=== PATIENT | male | born 1965 | race African-American/Black ===

== ENCOUNTER 2016-11-17 14:50 | Emergency (ER) | payer MEDICAID, OTHER ==
[~2016-11-17] VITALS: Ht 177.8 cm; Wt 84.0 kg
[~2016-11-17 14:50] MED LIST: NORCO
[2016-11-17] MEDS ORDERED: KETOROLAC 60MG/2ML VIAL IM ONE (19:00)
[2016-11-17 19:50] VITALS: BP 116/82
== END 2016-11-17 20:25 | disposition home or self-care (01) ==
LOC: ER 19:17
DX: K08.89 Other specified disorders of teeth and supporting structures (principal); M47.892 Other spondylosis, cervical region; F17.210 Nicotine dependence, cigarettes, uncomplicated; F12.10 Cannabis abuse, uncomplicated; Z88.0 Allergy status to penicillin
CPT/HCPCS: 96372; 99283; J1885

== ENCOUNTER 2017-12-18 08:18 | Emergency (ER) | payer MEDICAID ==
[~2017-12-18] VITALS: Ht 180.3 cm; Wt 97.7 kg
[2017-12-18 11:39] VITALS: BP 120/74
== END 2017-12-18 11:40 | disposition home or self-care (01) ==
LOC: ER 09:13
DX: G24.01 Drug induced subacute dyskinesia (principal); F12.10 Cannabis abuse, uncomplicated; Z88.0 Allergy status to penicillin
CPT/HCPCS: 99283

== ENCOUNTER 2018-07-18 16:19 | Emergency (ER) | payer MEDICAID ==
[~2018-07-18] VITALS: Ht 175.3 cm; Wt 83.0 kg
[2018-07-19] MEDS ORDERED: CYCLOBENZAPRINE 10MG TABLET PO ONE
[2018-07-19 00:14] VITALS: BP 155/97
== END 2018-07-19 00:16 | disposition home or self-care (01) ==
LOC: ER 16:19
DX: J20.9 Acute bronchitis, unspecified (principal); G51.32 Clonic hemifacial spasm, left; R13.10 Dysphagia, unspecified; R03.0 Elevated blood-pressure reading, without diagnosis of hypertension; G24.01 Drug induced subacute dyskinesia; T50.905D Adverse effect of unspecified drugs, medicaments and biological substances, subsequent encounter; F17.210 Nicotine dependence, cigarettes, uncomplicated; F12.90 Cannabis use, unspecified, uncomplicated; Z88.0 Allergy status to penicillin
CPT/HCPCS: 70360; 71045; 99283

== ENCOUNTER 2018-08-28 02:52 | Emergency (ER) | payer MEDICAID ==
[~2018-08-28] VITALS: Ht 180.3 cm; Wt 90.0 kg
[2018-08-28] MEDS ORDERED: IBUPROFEN 600MG TABLET PO ONE (06:30)
[2018-08-28 06:45] VITALS: BP 114/96
== END 2018-08-28 06:50 | disposition home or self-care (01) ==
LOC: ER 02:52
DX: R25.2 Cramp and spasm (principal); F17.210 Nicotine dependence, cigarettes, uncomplicated
CPT/HCPCS: 99283

== ENCOUNTER 2018-09-10 01:12 | Emergency (ER) | payer MEDICAID ==
[~2018-09-10] VITALS: Ht 177.8 cm; Wt 81.8 kg
[2018-09-10 03:30] VITALS: BP 135/75
== END 2018-09-10 03:40 | disposition home or self-care (01) ==
LOC: ER 01:12
DX: M62.838 Other muscle spasm (principal); Z88.0 Allergy status to penicillin
CPT/HCPCS: 99283

== ENCOUNTER 2018-09-12 15:03 | Emergency (ER) | payer MEDICAID ==
[~2018-09-12] VITALS: Ht 172.7 cm; Wt 80.0 kg
[2018-09-12] MEDS ORDERED: SODIUM CHLORIDE 0.9% 1,000 ML IV ONE (16:58)
[2018-09-12] MEDS ORDERED: MORPHINE SULFATE 4 MG/ML CPJ (NOT FOR IM USE) IV STA (16:58)
[2018-09-12] MEDS ORDERED: KETOROLAC 30MG/ML VIAL IV STA (16:58)
[2018-09-12] MEDS ORDERED: ONDANSETRON HCL 4MG/2ML INJ IV STA (16:58)
[2018-09-12 17:21] LABS: BASOPHILS % 0.5 % (0.0-2.0); EOSINOPHILS % 1.1 % (0.0-5.0); HEMOGLOBIN. 14.7 g/dL (14.0-18.0); LYMPHOCYTES % 36.5 % (20.0-50.0); MEAN CORPUSCULAR VOLUME 89.7 fL (80.0-94.0); MEAN PLATELET VOLUME 7.4 fl (7.4-10.4); MONOCYTES % 6.6 % (2.0-8.0); NEUTROPHILS % 55.3 % (40.0-76.0); PLATELET 182 x1000/uL (130-400); RED CELL DISTRIBUTION WIDTH 13.3 % (11.6-14.6)
[2018-09-12 17:23] LABS: CHLORIDE 108 mEq/L (98-107)
[2018-09-12 17:27] LABS: ETHANOL BLOOD 162 mg/dL
[2018-09-12 17:28] LABS: INR 1.1; PARTIAL THROMBOPLASTIN TIME 25.6 sec (23.4-31.0); PROTHROMBIN TIME 11.6 sec (9.6-11.0)
[2018-09-12 17:32] LABS: CREATINE KINASE 219 IU/L (39-308)
[2018-09-12 17:34] LABS: CREATINE KINASE MB FRACTION 2.1 ng/mL (0.5-3.6)
[2018-09-12 19:39] LABS: CLARITY URINE CLOUDY (CLEAR); COLOR URINE YELLOW (YELLOW); KETONES URINE NEGATIVE (NEGATIVE); LEUKOCYTE ESTERASE URINE NEGATIVE (NEGATIVE); NITRITE URINE NEGATIVE (NEGATIVE); OCCULT BLOOD URINE NEGATIVE (NEGATIVE); PROTEIN URINE NEGATIVE (NEGATIVE); SPECIFIC GRAVITY URINE 1.013 (1.005-1.030); UROBILINOGEN URINE 0.2 E.U./dL (0.2-1.0)
[2018-09-12 19:56] LABS: *AMPHETAMINES SCREEN URINE NEGATIVE (NEGATIVE); *BARBITURATES SCREEN URINE NEGATIVE (NEGATIVE); CANNABINOID URINE SCREEN PRESUMTIVE POSITIVE (NEGATIVE); PHENCYCLIDINE URINE SCREEN NEGATIVE (NEGATIVE)
[2018-09-12 19:57] LABS: *BENZODIAZEPINES SCREEN URINE NEGATIVE (NEGATIVE); *COCAINE SCREEN URINE NEGATIVE (NEGATIVE); METHADONE URINE SCREEN NEGATIVE (NEGATIVE); OPIATES URINE SCREEN PRESUMTIVE POSITIVE (NEGATIVE)
[2018-09-12] MEDS ORDERED: MAGNESIUM/ALUMINUM HYDROXIDE/SIMETHICONE 30ML UDC PO ONE (20:45)
[2018-09-12] MEDS ORDERED: LORAZEPAM 2MG/ML CPJ IV ONE (20:45)
[2018-09-12] MEDS ORDERED: FAMOTIDINE 20MG/2ML VIAL IV ONE (20:45)
[2018-09-13 04:16] VITALS: BP 146/95
== END 2018-09-13 04:48 | disposition home or self-care (01) ==
LOC: ER 15:03
DX: G92 Toxic encephalopathy (principal); K29.20 Alcoholic gastritis without bleeding; K21.9 Gastro-esophageal reflux disease without esophagitis; M62.838 Other muscle spasm; Y90.9 Presence of alcohol in blood, level not specified; Z88.0 Allergy status to penicillin
CPT/HCPCS: 36415; 71045; 80053; 80305; 80320; 81003; 82550; 82553; 83605; 83690; 83880; 84484; 85025; 85610; 85730; 87040; 87086; 93005; 96361; 96374; 96375; 99284; J1885; J2060; J2270; J2405; J3490; J7030; G0480

== ENCOUNTER 2018-09-13 04:57 | Emergency (ER) | payer MEDICAID ==
[~2018-09-13] VITALS: Ht 175.3 cm; Wt 87.0 kg
[2018-09-13 05:20] VITALS: BP 139/101
== END 2018-09-13 10:50 | disposition left against medical advice (07) ==
LOC: ER 04:57
DX: M62.838 Other muscle spasm (principal); Z53.21 Procedure and treatment not carried out due to patient leaving prior to being seen by health care provider

== ENCOUNTER 2018-10-13 13:17 | Emergency (ER) | payer MEDICAID ==
[~2018-10-13] VITALS: Ht 180.3 cm; Wt 86.0 kg
[2018-10-13 13:58] VITALS: BP 128/90
== END 2018-10-13 18:26 | disposition left against medical advice (07) ==
LOC: ER 13:17
DX: M62.838 Other muscle spasm (principal); Z53.21 Procedure and treatment not carried out due to patient leaving prior to being seen by health care provider

== ENCOUNTER 2018-10-23 02:17 | Emergency (ER) | payer MEDICAID ==
[~2018-10-23] VITALS: Ht 182.9 cm; Wt 77.0 kg
[2018-10-23] MEDS ORDERED: KETOROLAC 30MG/ML VIAL IM STA (03:28)
[2018-10-23 03:44] LABS: BASOPHILS % 0.8 % (0.0-2.0); EOSINOPHILS % 1.9 % (0.0-5.0); HEMATOCRIT. 40.5 % (42.0-52.0); HEMOGLOBIN. 13.8 g/dL (14.0-18.0); LYMPHOCYTES % 34.5 % (20.0-50.0); MEAN CORPUSCULAR VOLUME 90.7 fL (80.0-94.0); MEAN PLATELET VOLUME 7.4 fl (7.4-10.4); MONOCYTES % 7.4 % (2.0-8.0); NEUTROPHILS % 55.4 % (40.0-76.0); PLATELET 204 x1000/uL (130-400); RED BLOOD CELL COUNT 4.46 mill/uL (4.7-6.1)
[2018-10-23 03:52] LABS: CHLORIDE 108 mEq/L (98-107)
[2018-10-23 03:56] LABS: ETHANOL BLOOD 78 mg/dL
[2018-10-23 05:44] LABS: CLARITY URINE TURBID (CLEAR); COLOR URINE YELLOW (YELLOW); KETONES URINE NEGATIVE (NEGATIVE); LEUKOCYTE ESTERASE URINE NEGATIVE (NEGATIVE); NITRITE URINE NEGATIVE (NEGATIVE); OCCULT BLOOD URINE NEGATIVE (NEGATIVE); PROTEIN URINE NEGATIVE (NEGATIVE); SPECIFIC GRAVITY URINE 1.017 (1.005-1.030); UROBILINOGEN URINE 0.2 E.U./dL (0.2-1.0)
[2018-10-23 05:55] VITALS: BP 125/64
[2018-10-23 06:11] LABS: *AMPHETAMINES SCREEN URINE NEGATIVE (NEGATIVE); *BARBITURATES SCREEN URINE NEGATIVE (NEGATIVE)
[2018-10-23 06:12] LABS: *BENZODIAZEPINES SCREEN URINE PRESUMTIVE POSITIVE (NEGATIVE); *COCAINE SCREEN URINE NEGATIVE (NEGATIVE); CANNABINOID URINE SCREEN PRESUMTIVE POSITIVE (NEGATIVE); METHADONE URINE SCREEN NEGATIVE (NEGATIVE); OPIATES URINE SCREEN NEGATIVE (NEGATIVE); PHENCYCLIDINE URINE SCREEN NEGATIVE (NEGATIVE)
== END 2018-10-23 05:59 | disposition home or self-care (01) ==
LOC: ER 02:17
DX: M79.18 Myalgia, other site (principal); F10.10 Alcohol abuse, uncomplicated; Y90.3 Blood alcohol level of 60-79 mg/100 ml; F12.90 Cannabis use, unspecified, uncomplicated; R03.0 Elevated blood-pressure reading, without diagnosis of hypertension
CPT/HCPCS: 36415; 71045; 80048; 80305; 80320; 81003; 85025; 96372; 99284; J1885; J7050; Z7610; G0480

== ENCOUNTER 2018-10-27 23:01 | Emergency (ER) | payer MEDICAID ==
[~2018-10-27] VITALS: Ht 182.9 cm; Wt 91.0 kg
[2018-10-27 23:45] VITALS: BP 135/90
== END 2018-10-28 00:45 | disposition left against medical advice (07) ==
LOC: ER 23:01
DX: F10.129 Alcohol abuse with intoxication, unspecified (principal); Y90.9 Presence of alcohol in blood, level not specified; Z76.5 Malingerer [conscious simulation]
CPT/HCPCS: 99283

== ENCOUNTER 2018-11-16 19:16 | Emergency (ER) | payer MEDICAID ==
[~2018-11-16] VITALS: Ht 177.8 cm; Wt 81.0 kg
[2018-11-16 20:29] LABS: BASOPHILS % 0.4 % (0.0-2.0); EOSINOPHILS % 0.8 % (0.0-5.0); HEMATOCRIT. 44.8 % (42.0-52.0); HEMOGLOBIN. 14.7 g/dL (14.0-18.0); LYMPHOCYTES % 27.4 % (20.0-50.0); MEAN CORPUSCULAR HEMOGLOBIN 30.1 pg (28.0-32.0); MEAN CORPUSCULAR VOLUME 91.6 fL (80.0-94.0); MEAN PLATELET VOLUME 7.3 fl (7.4-10.4); MONOCYTES % 6.4 % (2.0-8.0); PLATELET 219 x1000/uL (130-400); RED BLOOD CELL COUNT 4.89 mill/uL (4.7-6.1); RED CELL DISTRIBUTION WIDTH 13.1 % (11.6-14.6)
[2018-11-16 20:32] LABS: CHLORIDE 109 mEq/L (98-107)
[2018-11-16 20:38] LABS: ETHANOL BLOOD 188 mg/dL
[2018-11-16] MEDS ORDERED: SODIUM CHLORIDE 0.9% 1,000 ML IV NR (21:00)
[2018-11-16] MEDS ORDERED: IBUPROFEN 600MG TABLET PO NR (21:00)
[2018-11-16] MEDS ORDERED: ACETAMINOPHEN 500MG TABLET PO ONE (21:30)
[2018-11-16 21:36] LABS: *AMPHETAMINES SCREEN URINE NEGATIVE (NEGATIVE); *BARBITURATES SCREEN URINE NEGATIVE (NEGATIVE); *BENZODIAZEPINES SCREEN URINE NEGATIVE (NEGATIVE)
[2018-11-16 21:37] LABS: *COCAINE SCREEN URINE NEGATIVE (NEGATIVE); CANNABINOID URINE SCREEN NEGATIVE (NEGATIVE); METHADONE URINE SCREEN NEGATIVE (NEGATIVE); OPIATES URINE SCREEN NEGATIVE (NEGATIVE); PHENCYCLIDINE URINE SCREEN NEGATIVE (NEGATIVE)
[2018-11-16 22:22] VITALS: BP 140/80
== END 2018-11-16 22:52 | disposition home or self-care (01) ==
LOC: ER 19:16
DX: F10.129 Alcohol abuse with intoxication, unspecified (principal); R51 Headache; K59.00 Constipation, unspecified; R13.10 Dysphagia, unspecified; Z88.0 Allergy status to penicillin; Z87.891 Personal history of nicotine dependence; Y90.6 Blood alcohol level of 120-199 mg/100 ml
CPT/HCPCS: 36415; 80048; 80305; 80307; 80320; 80329; 93005; 99284; G0480

== ENCOUNTER 2018-11-19 07:52 | Emergency (ER) | payer MEDICAID ==
[~2018-11-19] VITALS: Ht 177.8 cm; Wt 84.7 kg
[2018-11-19 08:18] LABS: BASOPHILS % 1.1 % (0.0-2.0); HEMATOCRIT. 45.5 % (42.0-52.0); HEMOGLOBIN. 15.1 g/dL (14.0-18.0); LYMPHOCYTES % 25.1 % (20.0-50.0); MEAN CORPUSCULAR HEMOGLOBIN 30.3 pg (28.0-32.0); MEAN PLATELET VOLUME 7.3 fl (7.4-10.4); MONOCYTES % 6.5 % (2.0-8.0); NEUTROPHILS % 66.3 % (40.0-76.0); PLATELET 247 x1000/uL (130-400); RED CELL DISTRIBUTION WIDTH 13.2 % (11.6-14.6)
[2018-11-19 08:26] LABS: INR 1.1; PROTHROMBIN TIME 11.3 sec (9.6-11.0)
[2018-11-19 08:33] LABS: CHLORIDE 107 mEq/L (98-107)
[2018-11-19 08:39] LABS: ETHANOL BLOOD 100 mg/dL
[2018-11-19 08:40] LABS: LDL CHOLESTEROL 37 mg/dL (5-100)
[2018-11-19 09:10] LABS: BG BASE EXCESS -1.9 mmol/L (-2.0-2.0); BG CARBOXYHEMOGLOBIN 1.4 % (0.5-1.5); BG DEOXYHEMOGLOBIN 7.2 % (0.0-5.0); BG FRACTION INSPIRED OXYGEN 21; BG HCO3 ACT 22.6 mmol/L (22.0-26.0); BG METHEMOGLOBIN 0.3 % (0.0-1.5); BG OXYGEN SATURATION 92.7 % (92.0-98.5); BG OXYHEMOGLOBIN 91.1 % (94.0-97.0); BG PCO2 37.9 mmHg (35.0-45.0); BG PH 7.393 (7.350-7.450); BG PO2 70.5 mmHg (75.0-100.0); BG SAMPLE SITE RIGHT RADIAL; BG VENT MODE ROOM AIR
[2018-11-19] MEDS ORDERED: BENZTROPINE MESYLATE 1MG/1ML 2ML AMP IM ONE (09:45)
[2018-11-19 12:26] VITALS: BP 134/85
== END 2018-11-19 12:28 | disposition home or self-care (01) ==
LOC: ER 07:52 → CANBEDREQ 17:59
DX: T51.91XA Toxic effect of unspecified alcohol, accidental (unintentional), initial encounter (principal); M62.838 Other muscle spasm; Z88.0 Allergy status to penicillin; Y92.89 Other specified places as the place of occurrence of the external cause
CPT/HCPCS: 36415; 36600; 70450; 70551; 71045; 80053; 80307; 80320; 80329; 82375; 82805; 82962; 83721; 84484; 85025; 85610; 93005; 96372; 99284; J0515; Z7610; G0480

== ENCOUNTER 2018-11-21 03:33 | Inpatient (IN) | payer MEDICAID ==
[~2018-11-21] VITALS: Ht 177.8 cm; Wt 84.4 kg
[2018-11-21] MEDS ORDERED: KETOROLAC 60MG/2ML VIAL IM STA (04:12)
[2018-11-21 04:34] LABS: CHLORIDE 101 mEq/L (98-107)
[2018-11-21 04:35] LABS: BASOPHILS % 0.4 % (0.0-2.0); EOSINOPHILS % 0.3 % (0.0-5.0); HEMATOCRIT. 41.5 % (42.0-52.0); HEMOGLOBIN. 14.1 g/dL (14.0-18.0); LYMPHOCYTES % 13.7 % (20.0-50.0); MEAN CORPUSCULAR HEMOGLOBIN 30.2 pg (28.0-32.0); MEAN CORPUSCULAR VOLUME 88.9 fL (80.0-94.0); MEAN PLATELET VOLUME 7.7 fl (7.4-10.4); MONOCYTES % 7.7 % (2.0-8.0); NEUTROPHILS % 77.9 % (40.0-76.0); PLATELET 172 x1000/uL (130-400); RED BLOOD CELL COUNT 4.67 mill/uL (4.7-6.1); RED CELL DISTRIBUTION WIDTH 12.8 % (11.6-14.6)
[2018-11-21 04:37] LABS: ETHANOL BLOOD 24 mg/dL
[2018-11-21] MEDS ORDERED: SODIUM CHLORIDE 0.9% 1,000 ML IV ONE (05:35)
[2018-11-21 05:54] LABS: CLARITY URINE CLOUDY (CLEAR); COLOR URINE ORANGE (YELLOW); KETONES URINE NEGATIVE (NEGATIVE); LEUKOCYTE ESTERASE URINE NEGATIVE (NEGATIVE); NITRITE URINE NEGATIVE (NEGATIVE); OCCULT BLOOD URINE NEGATIVE (NEGATIVE); PROTEIN URINE NEGATIVE (NEGATIVE); SPECIFIC GRAVITY URINE 1.016 (1.005-1.030); UROBILINOGEN URINE 0.2 E.U./dL (0.2-1.0)
[2018-11-21] MEDS ORDERED: DOCUSATE SODIUM 100MG CAPSULE PO PRN (08:15)
[2018-11-21] MEDS ORDERED: ACETAMINOPHEN 325MG TABLET PO PRN (08:15)
[2018-11-21] MEDS ORDERED: MAGNESIUM/ALUMINUM HYDROXIDE/SIMETHICONE 30ML UDC PO PRN (08:15)
[2018-11-21] MEDS ORDERED: ONDANSETRON HCL 4MG/2ML INJ IV PRN (08:15)
[2018-11-21] MEDS ORDERED: CLONIDINE 0.1MG TABLET PO PRN (08:15)
[2018-11-21] MEDS ORDERED: IPRATROPIUM/ALBUTEROL 0.5-3(2.5)MG/3ML NEB INH PRN (08:15)
[2018-11-21] MEDS ORDERED: DIPHENHYDRAMINE 50MG/ML VIAL IV PRN (08:15)
[2018-11-21] MEDS ORDERED: HYDROCODONE/ACETAMINOPHEN 5/325MG TABLET PO PRN (08:15)
[2018-11-21] MEDS ORDERED: GUAIFENESIN 200MG/10ML SUGAR FREE UDC PO PRN (08:15)
[2018-11-21 08:21] LABS: PHOSPHORUS 2.7 mg/dL (2.5-4.9)
[2018-11-21] MEDS ORDERED: CEFTRIAXONE 1 G PREMIX 50 ML IV SCH ×2 (09:00→12:00)
[2018-11-21] MEDS: SODIUM CHLORIDE 0.9% 1,000 ML IV SCH (09:47)
[2018-11-21 10:00] VITALS: BP 143/97
[2018-11-21 11:30] VITALS: BP 131/92
[2018-11-21] MEDS: MORPHINE SULFATE 2 MG/ML CPJ (NOT FOR IM USE) IV PRN ×3 (12:15→22:05)
[2018-11-21] MEDS: CEFTRIAXONE 1 G PREMIX 50 ML IV SCH (12:26)
[2018-11-21] MEDS ORDERED: FAMOTIDINE 20MG/2ML VIAL IV SCH (15:30)
[2018-11-21 15:42] VITALS: BP 136/96
[2018-11-21] MEDS: PANTOPRAZOLE SODIUM 40 MG/VIAL IV SCH (16:27)
[2018-11-21] MEDS: DIATR MEGLU/DIATRIZOATE SOLN 30ML PO NR ×2 (18:05→20:55)
[2018-11-21 21:00] VITALS: BP 151/90
[2018-11-21 22:40] LABS: AMYLASE 47 IU/L (25-115)
[2018-11-21 22:45] LABS: CREATINE KINASE 123 IU/L (39-308)
[2018-11-21 23:06] LABS: HEPATITIS B SURFACE ANTIGEN NEGATIVE
[2018-11-21 23:36] LABS: HEPATITIS A AB IGM NEGATIVE (NEGATIVE)
[2018-11-22] VITALS: BP 137/92
[2018-11-22] MEDS: MORPHINE SULFATE 2 MG/ML CPJ (NOT FOR IM USE) IV PRN ×3 (02:43→12:56)
[2018-11-22 04:00] VITALS: BP 130/87
[2018-11-22 06:25] LABS: BASOPHILS % 0.2 % (0.0-2.0); EOSINOPHILS % 0.3 % (0.0-5.0); HEMOGLOBIN. 12.8 g/dL (14.0-18.0); LYMPHOCYTES % 13.9 % (20.0-50.0); MEAN CORPUSCULAR HEMOGLOBIN 30.3 pg (28.0-32.0); MEAN CORPUSCULAR VOLUME 89.8 fL (80.0-94.0); MEAN PLATELET VOLUME 8.1 fl (7.4-10.4); MONOCYTES % 7.9 % (2.0-8.0); NEUTROPHILS % 77.7 % (40.0-76.0); PLATELET 143 x1000/uL (130-400); RED BLOOD CELL COUNT 4.23 mill/uL (4.7-6.1); RED CELL DISTRIBUTION WIDTH 12.9 % (11.6-14.6)
[2018-11-22 06:50] LABS: CHLORIDE 102 mEq/L (98-107)
[2018-11-22 06:56] LABS: AMYLASE 31 IU/L (25-115)
[2018-11-22 06:58] LABS: LDL CHOLESTEROL 50 mg/dL (5-100)
[2018-11-22 06:59] LABS: HDL CHOLESTEROL 38 mg/dL (40-59)
[2018-11-22 08:00] VITALS: BP 128/84
[2018-11-22] MEDS: PANTOPRAZOLE SODIUM 40 MG/VIAL IV SCH (08:44)
[2018-11-22] MEDS: SODIUM CHLORIDE 0.9% 1,000 ML IV SCH (10:00)
[2018-11-22] MEDS: CEFTRIAXONE 1 G PREMIX 50 ML IV SCH (11:35)
[2018-11-22 12:00] VITALS: BP 143/81
[2018-11-22 16:00] VITALS: BP 122/77
[2018-11-22 16:47] VITALS: BP 122/77
== END 2018-11-22 17:17 | disposition home or self-care (01) | DRG 282 ==
LOC: ER 03:47 → 6EST 06:03 → ENRESERV 08:19
PROVIDERS: ADMIT Internal Medicine; ATTEND Internal Medicine
DX: K85.90 Acute pancreatitis without necrosis or infection, unspecified (principal); K63.1 Perforation of intestine (nontraumatic); E88.09 Other disorders of plasma-protein metabolism, not elsewhere classified; G25.9 Extrapyramidal and movement disorder, unspecified; K59.00 Constipation, unspecified; R73.9 Hyperglycemia, unspecified; F17.210 Nicotine dependence, cigarettes, uncomplicated; G40.909 Epilepsy, unspecified, not intractable, without status epilepticus; F99 Mental disorder, not otherwise specified; Z88.0 Allergy status to penicillin
CPT/HCPCS: 36415; 70490; 71045; 74176; 76700; 80061; 80076; 80320; 82150; 82248; 82550; 83036; 83735; 84100; 84443; 84478; 86705; 86709; 86803; 87340; 90471; 92610; 93005; 93970; 96372; 99285; C9113; J0696; J1885; J2270; J3490; J7030; Q9963; G0480

== ENCOUNTER 2018-11-24 21:42 | Emergency (ER) | payer MEDICAID ==
[~2018-11-24] VITALS: Ht 172.7 cm; Wt 77.0 kg
[2018-11-24 21:45] VITALS: BP 137/90
[2018-11-24] MEDS ORDERED: IBUPROFEN 600MG TABLET PO STA (22:59)
== END 2018-11-24 23:37 | disposition home or self-care (01) ==
LOC: ER 21:42
DX: R07.89 Other chest pain (principal); R68.84 Jaw pain
CPT/HCPCS: 93005; 99283

== ENCOUNTER 2018-11-29 01:58 | Emergency (ER) | payer MEDICAID ==
[~2018-11-29] VITALS: Ht 175.3 cm; Wt 82.0 kg
[2018-11-29] MEDS ORDERED: SODIUM CHLORIDE 0.9% 1,000 ML IV ONE (04:11)
[2018-11-29] MEDS ORDERED: LORAZEPAM 2MG/ML CPJ IV ONE (04:15)
[2018-11-29] MEDS ORDERED: DIPHENHYDRAMINE 50MG/ML VIAL IV ONE (04:15)
[2018-11-29 04:41] LABS: CHLORIDE 109 mEq/L (98-107); PROTHROMBIN TIME 10.3 sec (9.6-11.0)
[2018-11-29 04:44] LABS: BASOPHILS % 0.4 % (0.0-2.0); EOSINOPHILS % 1.8 % (0.0-5.0); HEMATOCRIT. 35.5 % (42.0-52.0); HEMOGLOBIN. 11.7 g/dL (14.0-18.0); LYMPHOCYTES % 23.8 % (20.0-50.0); MEAN CORPUSCULAR HEMOGLOBIN 30.1 pg (28.0-32.0); MEAN CORPUSCULAR VOLUME 91.2 fL (80.0-94.0); MONOCYTES % 8.4 % (2.0-8.0); NEUTROPHILS % 65.6 % (40.0-76.0); PLATELET 314 x1000/uL (130-400); RED BLOOD CELL COUNT 3.89 mill/uL (4.7-6.1); RED CELL DISTRIBUTION WIDTH 12.8 % (11.6-14.6)
[2018-11-29] MEDS ORDERED: MORPHINE SULFATE 2 MG/ML CPJ (NOT FOR IM USE) IV ONE (07:15)
[2018-11-29 08:22] LABS: CLARITY URINE CLEAR (CLEAR); COLOR URINE YELLOW (YELLOW); KETONES URINE NEGATIVE (NEGATIVE); LEUKOCYTE ESTERASE URINE NEGATIVE (NEGATIVE); NITRITE URINE NEGATIVE (NEGATIVE); OCCULT BLOOD URINE NEGATIVE (NEGATIVE); PH URINE 5.5 (4.5-8.0); PROTEIN URINE NEGATIVE (NEGATIVE); SPECIFIC GRAVITY URINE 1.005 (1.005-1.030); UROBILINOGEN URINE 0.2 E.U./dL (0.2-1.0)
[2018-11-29 11:31] VITALS: BP 128/89
== END 2018-11-29 11:32 | disposition home or self-care (01) ==
LOC: ER 01:58
DX: M62.838 Other muscle spasm (principal)
CPT/HCPCS: 36415; 80053; 81003; 83735; 85025; 85610; 96374; 96375; 99283; J1200; J2060; J2270; J7030

== ENCOUNTER 2018-12-09 14:45 | Inpatient (IN) | payer MEDICAID ==
[~2018-12-09] VITALS: Ht 172.7 cm; Wt 78.7 kg
[2018-12-09] MEDS ORDERED: LORAZEPAM 2MG/ML CPJ IV STA (18:16)
[2018-12-09] MEDS ORDERED: SODIUM CHLORIDE 0.9% 1,000 ML IV ONE ×2 (18:16)
[2018-12-09] MEDS ORDERED: DIPHENHYDRAMINE 50MG/ML VIAL IV ONE (18:30)
[2018-12-09] MEDS ORDERED: KETOROLAC 15MG/ML VIAL IV ONE (18:30)
[2018-12-09 18:46] LABS: BASOPHILS % 0.5 % (0.0-2.0); EOSINOPHILS % 0.9 % (0.0-5.0); HEMATOCRIT. 41.2 % (42.0-52.0); HEMOGLOBIN. 13.7 g/dL (14.0-18.0); LYMPHOCYTES % 19.2 % (20.0-50.0); MEAN CORPUSCULAR HEMOGLOBIN 30.1 pg (28.0-32.0); MEAN CORPUSCULAR VOLUME 90.8 fL (80.0-94.0); MEAN PLATELET VOLUME 7.6 fl (7.4-10.4); MONOCYTES % 5.4 % (2.0-8.0); PLATELET 342 x1000/uL (130-400); RED BLOOD CELL COUNT 4.54 mill/uL (4.7-6.1)
[2018-12-09 18:48] LABS: CHLORIDE 104 mEq/L (98-107)
[2018-12-09 18:50] LABS: PARTIAL THROMBOPLASTIN TIME 25.4 sec (23.4-31.0); PROTHROMBIN TIME 10.3 sec (9.6-11.0)
[2018-12-09 18:55] LABS: ETHANOL BLOOD < 10 mg/dL
[2018-12-09 18:59] LABS: CREATINE KINASE 106 IU/L (39-308)
[2018-12-09] MEDS ORDERED: MORPHINE SULFATE 4 MG/ML CPJ (NOT FOR IM USE) IV ONE (19:15)
[2018-12-09] MEDS ORDERED: ONDANSETRON HCL 4MG/2ML INJ IV ONE (19:15)
[2018-12-09 19:17] LABS: CLARITY URINE CLEAR (CLEAR); COLOR URINE YELLOW (YELLOW); KETONES URINE NEGATIVE (NEGATIVE); LEUKOCYTE ESTERASE URINE NEGATIVE (NEGATIVE); NITRITE URINE NEGATIVE (NEGATIVE); OCCULT BLOOD URINE NEGATIVE (NEGATIVE); PROTEIN URINE NEGATIVE (NEGATIVE); SPECIFIC GRAVITY URINE 1.008 (1.005-1.030); UROBILINOGEN URINE 0.2 E.U./dL (0.2-1.0)
[2018-12-09 19:28] LABS: *AMPHETAMINES SCREEN URINE NEGATIVE (NEGATIVE); *BARBITURATES SCREEN URINE NEGATIVE (NEGATIVE); *BENZODIAZEPINES SCREEN URINE NEGATIVE (NEGATIVE); *COCAINE SCREEN URINE NEGATIVE (NEGATIVE)
[2018-12-09 19:29] LABS: CANNABINOID URINE SCREEN NEGATIVE (NEGATIVE); METHADONE URINE SCREEN NEGATIVE (NEGATIVE); OPIATES URINE SCREEN NEGATIVE (NEGATIVE); PHENCYCLIDINE URINE SCREEN NEGATIVE (NEGATIVE)
[2018-12-10] VITALS: BP 143/96
[2018-12-10] MEDS ORDERED: SODIUM CHLORIDE 0.9% 1,000 ML IV SCH (01:14)
[2018-12-10] MEDS ORDERED: ONDANSETRON HCL 4MG/2ML INJ IV PRN (01:15)
[2018-12-10] MEDS ORDERED: IPRATROPIUM/ALBUTEROL 0.5-3(2.5)MG/3ML NEB INH PRN (01:15)
[2018-12-10] MEDS ORDERED: DOCUSATE SODIUM 100MG CAPSULE PO PRN (01:15)
[2018-12-10] MEDS ORDERED: ACETAMINOPHEN 325MG TABLET PO PRN (01:15)
[2018-12-10] MEDS ORDERED: MAGNESIUM/ALUMINUM HYDROXIDE/SIMETHICONE 30ML UDC PO PRN (01:15)
[2018-12-10] MEDS ORDERED: CLONIDINE 0.1MG TABLET PO PRN (01:15)
[2018-12-10] MEDS ORDERED: HYDROCODONE/ACETAMINOPHEN 5/325MG TABLET PO PRN (01:15)
[2018-12-10] MEDS ORDERED: MVI, ADULT NO.1 10 ML, FOLIC ACID 1 MG, THIAMINE HCL 100 MG in SODIUM CHLORIDE 0.9% 1,0... IV SCH ×4 (02:00)
[2018-12-10] MEDS: LORAZEPAM 2MG/ML CPJ IV PRN ×2 (03:35→16:32)
[2018-12-10 04:00] VITALS: BP 125/86
[2018-12-10] MEDS: CHLORDIAZEPOXIDE 25MG CAPSULE PO SCH ×2 (06:57→13:15)
[2018-12-10 08:00] VITALS: BP_SYST 123; BP_SYST 124; BP_DIAS 73; BP_DIAS 79
[2018-12-10] MEDS ORDERED: MULTIVITAMINS,THER W-MINERALS TABLET PO SCH (09:00)
[2018-12-10] MEDS ORDERED: THIAMINE HCL 100MG TABLET PO SCH (09:00)
[2018-12-10] MEDS: ENOXAPARIN 40MG/0.4ML SYR SUBCUT SCH (09:00)
[2018-12-10] MEDS ORDERED: FOLIC ACID 1MG TABLET PO SCH (09:00)
[2018-12-10 09:50] LABS: CHLORIDE 109 mEq/L (98-107)
[2018-12-10 09:58] LABS: LDL CHOLESTEROL 86 mg/dL (5-100)
[2018-12-10 10:00] LABS: CREATINE KINASE 65 IU/L (39-308); CREATINE KINASE MB FRACTION < 1.0 ng/mL (0.5-3.6)
[2018-12-10 10:01] LABS: HDL CHOLESTEROL 37 mg/dL (40-59)
[2018-12-10 10:02] LABS: BASOPHILS % 0.4 % (0.0-2.0); EOSINOPHILS % 1.2 % (0.0-5.0); HEMATOCRIT. 37.8 % (42.0-52.0); HEMOGLOBIN. 12.3 g/dL (14.0-18.0); MEAN CORPUSCULAR VOLUME 92.1 fL (80.0-94.0); MEAN PLATELET VOLUME 7.8 fl (7.4-10.4); MONOCYTES % 6.4 % (2.0-8.0); PLATELET 303 x1000/uL (130-400); RED CELL DISTRIBUTION WIDTH 13.2 % (11.6-14.6)
[2018-12-10] MEDS ORDERED: BISACODYL 10MG SUPP PR NR (11:30)
[2018-12-10] MEDS ORDERED: BISACODYL 10MG SUPP PR PRN (11:30)
[2018-12-10] MEDS ORDERED: DIPHENHYDRAMINE 50MG/ML VIAL IV PRN (12:00)
[2018-12-10 12:28] VITALS: BP 123/73
[2018-12-10] MEDS: MORPHINE SULFATE 2 MG/ML CPJ (NOT FOR IM USE) IV PRN ×3 (13:16→23:49)
[2018-12-10 16:00] VITALS: BP 138/89
[2018-12-10 16:23] LABS: CREATINE KINASE 62 IU/L (39-308)
[2018-12-10 16:25] LABS: CREATINE KINASE MB FRACTION < 1.0 ng/mL (0.5-3.6)
[2018-12-10] MEDS: DEXT 5%/0.45% NACL 1000ML 1,000 ML IV SCH (16:32)
[2018-12-10 20:00] VITALS: BP 120/90
[2018-12-10] MEDS: CLONAZEPAM 0.5MG TABLET PO SCH (22:00)
[2018-12-11] VITALS: BP 158/88
[2018-12-11] MEDS: MORPHINE SULFATE 2 MG/ML CPJ (NOT FOR IM USE) IV PRN ×4 (01:18→20:31)
[2018-12-11] MEDS: LORAZEPAM 2MG/ML CPJ IV PRN ×2 (03:24→10:11)
[2018-12-11 04:00] VITALS: BP 120/70
[2018-12-11] MEDS: CLONAZEPAM 0.5MG TABLET PO SCH ×2 (06:00→13:23)
[2018-12-11] MEDS: DEXT 5%/0.45% NACL 1000ML 1,000 ML IV SCH ×2 (06:30→13:13)
[2018-12-11 08:00] VITALS: BP 130/89
[2018-12-11] MEDS: ENOXAPARIN 40MG/0.4ML SYR SUBCUT SCH (09:47)
[2018-12-11 11:58] VITALS: BP 117/75
[2018-12-11] MEDS ORDERED: FOLIC ACID 1 MG, THIAMINE HCL 100 MG, MVI, ADULT NO.1 10 ML in DEXTROSE 5% WATER 1,000 ML IV ONE ×4 (14:00)
[2018-12-11 16:00] VITALS: BP 143/89
[2018-12-11 20:00] VITALS: BP 124/77
[2018-12-11] MEDS ORDERED: CLONAZEPAM 1MG TABLET PO NR (22:41)
[2018-12-12] VITALS: BP 142/81
[2018-12-12] MEDS: LORAZEPAM 2MG/ML CPJ IV PRN ×2 (00:32→13:01)
[2018-12-12] MEDS: MORPHINE SULFATE 2 MG/ML CPJ (NOT FOR IM USE) IV PRN ×2 (03:00→08:48)
[2018-12-12] MEDS: DEXT 5%/0.45% NACL 1000ML 1,000 ML IV SCH ×2 (03:12→08:46)
[2018-12-12 04:00] VITALS: BP_SYST 112; BP_SYST 122; BP_DIAS 74; BP_DIAS 76
[2018-12-12] MEDS: CLONAZEPAM 1MG TABLET PO SCH ×2 (06:14→13:19)
[2018-12-12 08:00] VITALS: BP 97/63
[2018-12-12] MEDS: ENOXAPARIN 40MG/0.4ML SYR SUBCUT SCH (08:47)
[2018-12-12] MEDS ORDERED: BACL-141 MT (11:29)
[2018-12-12] MEDS ORDERED: QUET100T MT (11:32)
[2018-12-12 12:00] VITALS: BP 128/74
[2018-12-12 15:52] VITALS: BP 128/74
== END 2018-12-12 16:14 | disposition home or self-care (01) | DRG 282 ==
LOC: ER 14:45 → 6EST 20:47 → EDBEDREQTM 20:55 → EDBEDREQ 20:55 → ENRESERV 22:03
PROVIDERS: ADMIT Internal Medicine; ATTEND Internal Medicine
DX: K85.90 Acute pancreatitis without necrosis or infection, unspecified (principal); E44.1 Mild protein-calorie malnutrition; K76.0 Fatty (change of) liver, not elsewhere classified; R29.90 Unspecified symptoms and signs involving the nervous system; R13.10 Dysphagia, unspecified; D64.9 Anemia, unspecified; G24.9 Dystonia, unspecified; I10 Essential (primary) hypertension; K59.00 Constipation, unspecified; R74.0 Nonspecific elevation of levels of transaminase and lactic acid dehydrogenase [LDH]; Z60.2 Problems related to living alone; E78.1 Pure hyperglyceridemia; Z79.899 Other long term (current) drug therapy; Z88.0 Allergy status to penicillin; Z68.26 Body mass index [BMI] 26.0-26.9, adult
CPT/HCPCS: 36415; 71045; 76700; 80061; 80076; 80305; 80307; 80320; 80329; 82390; 82550; 82553; 83735; 83880; 84443; 84484; 92610; 93005; 93970; 96374; 96375; 99285; C1893; J1200; J1650; J1885; J2060; J2270; J2405; J3411; J3490; J7030; J7070; G0480

== ENCOUNTER 2018-12-14 10:59 | Emergency (ER) | payer MEDICAID ==
[~2018-12-14] VITALS: Ht 177.8 cm; Wt 84.0 kg
[~2018-12-14 10:59] MED LIST changes: +BACL-141 MT; -NORCO; +QUET100T MT
[2018-12-14 11:03] VITALS: BP 110/80
[2018-12-14 11:50] LABS: BASOPHILS % 0.7 % (0.0-2.0); EOSINOPHILS % 1.2 % (0.0-5.0); HEMATOCRIT. 40.4 % (42.0-52.0); HEMOGLOBIN. 13.4 g/dL (14.0-18.0); LYMPHOCYTES % 17.4 % (20.0-50.0); MEAN CORPUSCULAR HEMOGLOBIN 30.1 pg (28.0-32.0); MEAN CORPUSCULAR VOLUME 90.6 fL (80.0-94.0); MEAN PLATELET VOLUME 7.4 fl (7.4-10.4); MONOCYTES % 8.3 % (2.0-8.0); NEUTROPHILS % 72.4 % (40.0-76.0); PLATELET 273 x1000/uL (130-400); RED BLOOD CELL COUNT 4.45 mill/uL (4.7-6.1); RED CELL DISTRIBUTION WIDTH 13.1 % (11.6-14.6)
[2018-12-14 11:58] LABS: CHLORIDE 109 mEq/L (98-107)
[2018-12-14 12:07] LABS: ETHANOL BLOOD < 10 mg/dL
== END 2018-12-14 13:13 | disposition home or self-care (01) ==
LOC: ER 12:15
DX: G24.9 Dystonia, unspecified (principal); Z88.0 Allergy status to penicillin; Z79.899 Other long term (current) drug therapy
CPT/HCPCS: 36415; 80320; 99283; G0480

== ENCOUNTER 2019-03-18 01:06 | Inpatient (IN) | payer MEDICAID ==
[~2019-03-18] VITALS: Ht 177.8 cm; Wt 94.9 kg
[2019-03-18] MEDS ORDERED: SODIUM CHLORIDE 0.9% 1,000 ML IV ONE ×2 (03:05→04:22)
[2019-03-18 03:16] LABS: BASOPHILS % 0.3 % (0.0-2.0); HEMATOCRIT. 42.2 % (42.0-52.0); LYMPHOCYTES % 23.3 % (20.0-50.0); MEAN CORPUSCULAR HEMOGLOBIN 30.4 pg (28.0-32.0); MEAN CORPUSCULAR VOLUME 91.6 fL (80.0-94.0); MEAN PLATELET VOLUME 8.3 fl (7.4-10.4); MONOCYTES % 4.3 % (2.0-8.0); NEUTROPHILS % 72.1 % (40.0-76.0); PLATELET 169 x1000/uL (130-400); RED CELL DISTRIBUTION WIDTH 14.9 % (11.6-14.6)
[2019-03-18] MEDS ORDERED: KETOROLAC 30MG/ML VIAL IV STA (03:22)
[2019-03-18] MEDS ORDERED: ONDANSETRON HCL 4MG/2ML INJ IV STA (03:22)
[2019-03-18 03:23] LABS: INR 1.3; PROTHROMBIN TIME 13.3 sec (9.6-11.0)
[2019-03-18 04:01] LABS: CHLORIDE 99 mEq/L (98-107)
[2019-03-18] MEDS ORDERED: MORPHINE SULFATE 4 MG/ML CPJ (NOT FOR IM USE) IV ONE (04:30)
[2019-03-18] MEDS ORDERED: IOHEXOL-300 100 ML BOTTLE ONE (07:15)
[2019-03-18] MEDS ORDERED: ONDANSETRON HCL 4MG/2ML INJ IV PRN (07:45)
[2019-03-18] MEDS ORDERED: IPRATROPIUM/ALBUTEROL 0.5-3(2.5)MG/3ML NEB HHN PRN (07:45)
[2019-03-18] MEDS ORDERED: DIPHENHYDRAMINE 50MG/ML VIAL IV PRN (07:45)
[2019-03-18] MEDS ORDERED: ACETAMINOPHEN 325MG TABLET PO PRN (07:45)
[2019-03-18 08:00] VITALS: BP 130/77
[2019-03-18 08:07] LABS: CLARITY URINE CLEAR (CLEAR); COLOR URINE ORANGE (YELLOW); KETONES URINE TRACE (NEGATIVE); LEUKOCYTE ESTERASE URINE TRACE (NEGATIVE); NITRITE URINE POSITIVE (NEGATIVE); OCCULT BLOOD URINE NEGATIVE (NEGATIVE); PROTEIN URINE TRACE (NEGATIVE); SPECIFIC GRAVITY URINE 1.074 (1.005-1.030)
[2019-03-18 08:49] LABS: PHOSPHORUS 3.7 mg/dL (2.5-4.9)
[2019-03-18] MEDS: HYDROMORPHONE HCL/PF 2MG/ML CPJ IV PRN ×2 (09:46→22:02)
[2019-03-18 09:47] VITALS: BP 130/77
[2019-03-18] MEDS: DEXT 5%/0.9% NACL 1,000 ML IV SCH ×2 (09:49→20:21)
[2019-03-18] MEDS: ENOXAPARIN 40MG/0.4ML SYR SUBCUT SCH (10:48)
[2019-03-18] MEDS ORDERED: MAGNESIUM 2 G PREMIX 50 ML IV SCH (11:00)
[2019-03-18 12:00] VITALS: BP 113/79
[2019-03-18] MEDS ORDERED: DEXTROSE 50% WATER 50ML SYRINGE IV PRN (12:30)
[2019-03-18] MEDS: INSULIN LISPRO 100 UNITS/ML SUBCUT SCH ×3 (12:48→21:36)
[2019-03-18 16:00] VITALS: BP 137/77
[2019-03-18 17:10] LABS: HEPATITIS B SURFACE ANTIGEN NEGATIVE
[2019-03-18] MEDS: BLOOD SUGAR DIAGNOSTIC STRIP TEST SCH ×2 (17:22→21:24)
[2019-03-18 17:39] LABS: HEPATITIS A AB IGM NEGATIVE (NEGATIVE)
[2019-03-18] MEDS: PANTOPRAZOLE SODIUM 40 MG/VIAL IV SCH (18:35)
[2019-03-18 20:00] VITALS: BP 142/79
[2019-03-19] VITALS: BP 145/91
[2019-03-19 04:00] VITALS: BP 135/79
[2019-03-19] MEDS: HYDROMORPHONE HCL/PF 2MG/ML CPJ IV PRN ×3 (07:03→20:51)
[2019-03-19 07:23] LABS: BASOPHILS % 0.2 % (0.0-2.0); EOSINOPHILS % 0.3 % (0.0-5.0); HEMATOCRIT. 41.7 % (42.0-52.0); HEMOGLOBIN. 13.7 g/dL (14.0-18.0); LYMPHOCYTES % 26.7 % (20.0-50.0); MEAN CORPUSCULAR HEMOGLOBIN 30.5 pg (28.0-32.0); MONOCYTES % 7.6 % (2.0-8.0); NEUTROPHILS % 65.2 % (40.0-76.0); PLATELET 115 x1000/uL (130-400); RED BLOOD CELL COUNT 4.49 mill/uL (4.7-6.1); RED CELL DISTRIBUTION WIDTH 15.2 % (11.6-14.6)
[2019-03-19] MEDS: BLOOD SUGAR DIAGNOSTIC STRIP TEST SCH ×5 (07:28→21:22)
[2019-03-19 07:38] LABS: CHLORIDE 106 mEq/L (98-107)
[2019-03-19 07:52] LABS: LDL CHOLESTEROL 76 mg/dL (5-100)
[2019-03-19 07:54] LABS: HDL CHOLESTEROL 12 mg/dL (40-59)
[2019-03-19] MEDS: DEXT 5%/0.9% NACL 1,000 ML IV SCH (07:58)
[2019-03-19] MEDS: INSULIN LISPRO 100 UNITS/ML SUBCUT SCH ×3 (07:59→21:22)
[2019-03-19 08:00] VITALS: BP 136/82
[2019-03-19] MEDS: PANTOPRAZOLE SODIUM 40 MG/VIAL IV SCH ×2 (09:34→16:53)
[2019-03-19] MEDS: ENOXAPARIN 40MG/0.4ML SYR SUBCUT SCH (09:35)
[2019-03-19 12:00] VITALS: BP 137/87
[2019-03-19] MEDS ORDERED: CALCIUM GLUCONATE 1,000 MG in DEXT 5% WATER 90 ML IV NR (12:30)
[2019-03-19] MEDS ORDERED: MAGNESIUM 2 G PREMIX 50 ML IV NR (15:30)
[2019-03-19 16:00] VITALS: BP 128/87
[2019-03-19] MEDS ORDERED: DEXTROSE 50% WATER 50ML SYRINGE IV PRN (18:15)
[2019-03-19] MEDS: SODIUM CHLORIDE 0.9% 1,000 ML IV SCH (18:23)
[2019-03-19 20:00] VITALS: BP 139/94
[2019-03-19] MEDS: LEVOFLOXACIN 500MG PREMIX 100 ML IV SCH (21:12)
[2019-03-20] VITALS: BP 137/73
[2019-03-20 04:00] VITALS: BP 123/53
[2019-03-20] MEDS: SODIUM CHLORIDE 0.9% 1,000 ML IV SCH ×2 (04:31→14:15)
[2019-03-20] MEDS: HYDROMORPHONE HCL/PF 2MG/ML CPJ IV PRN ×5 (04:31→21:01)
[2019-03-20] MEDS: BLOOD SUGAR DIAGNOSTIC STRIP TEST SCH ×4 (07:20→21:01)
[2019-03-20 08:00] VITALS: BP 152/79
[2019-03-20 08:23] LABS: BASOPHILS % 0.2 % (0.0-2.0); EOSINOPHILS % 0.8 % (0.0-5.0); HEMOGLOBIN. 11.2 g/dL (14.0-18.0); LYMPHOCYTES % 30.4 % (20.0-50.0); MEAN CORPUSCULAR HEMOGLOBIN 30.5 pg (28.0-32.0); MEAN CORPUSCULAR VOLUME 92.7 fL (80.0-94.0); MEAN PLATELET VOLUME 9.3 fl (7.4-10.4); MONOCYTES % 9.5 % (2.0-8.0); NEUTROPHILS % 59.1 % (40.0-76.0); PLATELET 117 x1000/uL (130-400); RED BLOOD CELL COUNT 3.67 mill/uL (4.7-6.1); RED CELL DISTRIBUTION WIDTH 15.1 % (11.6-14.6)
[2019-03-20 08:30] LABS: CHLORIDE 106 mEq/L (98-107)
[2019-03-20] MEDS: ENOXAPARIN 40MG/0.4ML SYR SUBCUT SCH (08:55)
[2019-03-20] MEDS: PANTOPRAZOLE SODIUM 40 MG/VIAL IV SCH ×2 (08:56→17:27)
[2019-03-20] MEDS: INSULIN LISPRO 100 UNITS/ML SUBCUT SCH ×4 (09:43→21:00)
[2019-03-20 12:00] VITALS: BP 149/83
[2019-03-20] MEDS ORDERED: BISACODYL 10MG SUPP PR NR (15:30)
[2019-03-20 16:00] VITALS: BP 162/79
[2019-03-20 20:00] VITALS: BP 135/52
[2019-03-20] MEDS: LEVOFLOXACIN 500MG PREMIX 100 ML IV SCH (21:00)
[2019-03-21] VITALS: BP 134/76
[2019-03-21] MEDS: HYDROMORPHONE HCL/PF 2MG/ML CPJ IV PRN ×6 (01:33→20:54)
[2019-03-21] MEDS: SODIUM CHLORIDE 0.9% 1,000 ML IV SCH ×3 (01:35→22:17)
[2019-03-21 05:06] LABS: HIV SCREEN 4G Non Reactive (Non Reactive)
[2019-03-21] MEDS: INSULIN LISPRO 100 UNITS/ML SUBCUT SCH ×4 (07:50→21:00)
[2019-03-21] MEDS: BLOOD SUGAR DIAGNOSTIC STRIP TEST SCH ×4 (07:53→21:00)
[2019-03-21 07:58] LABS: CHLORIDE 101 mEq/L (98-107)
[2019-03-21 08:00] VITALS: BP 139/78
[2019-03-21] MEDS: ENOXAPARIN 40MG/0.4ML SYR SUBCUT SCH (08:35)
[2019-03-21] MEDS: PANTOPRAZOLE SODIUM 40 MG/VIAL IV SCH ×2 (08:35→17:35)
[2019-03-21 12:00] VITALS: BP 136/75
[2019-03-21 16:00] VITALS: BP 126/87
[2019-03-21 20:00] VITALS: BP 168/81
[2019-03-21] MEDS: LEVOFLOXACIN 500MG PREMIX 100 ML IV SCH (20:53)
[2019-03-22] MEDS: HYDROMORPHONE HCL/PF 2MG/ML CPJ IV PRN ×7 (01:19→23:42)
[2019-03-22 04:00] VITALS: BP 162/86
[2019-03-22 06:33] LABS: CHLORIDE 101 mEq/L (98-107)
[2019-03-22] MEDS: INSULIN LISPRO 100 UNITS/ML SUBCUT SCH ×4 (07:50→21:00)
[2019-03-22 08:00] VITALS: BP 119/80
[2019-03-22] MEDS: BLOOD SUGAR DIAGNOSTIC STRIP TEST SCH ×4 (08:12→21:09)
[2019-03-22] MEDS: ENOXAPARIN 40MG/0.4ML SYR SUBCUT SCH (09:14)
[2019-03-22] MEDS: PANTOPRAZOLE SODIUM 40 MG/VIAL IV SCH ×2 (09:14→17:00)
[2019-03-22 11:20] LABS: HEMATOCRIT. 28.4 % (42.0-52.0); MEAN CORPUSCULAR HEMOGLOBIN 30.8 pg (28.0-32.0); MEAN CORPUSCULAR VOLUME 91.8 fL (80.0-94.0); MEAN PLATELET VOLUME 7.2 fl (7.4-10.4); PLATELET 173 x1000/uL (130-400); RED BLOOD CELL COUNT 3.09 mill/uL (4.7-6.1)
[2019-03-22 11:28] LABS: HEMOGLOBIN. 9.5 g/dL (14.0-18.0)
[2019-03-22 12:00] VITALS: BP_SYST 116; BP_SYST 124; BP_DIAS 82; BP_DIAS 84
[2019-03-22 16:00] VITALS: BP 122/66
[2019-03-22] MEDS ORDERED: POTASSIUM CHLORIDE INJ 40 MEQ in DEXTROSE 5% WATER 1,000 ML IV ONE (16:00)
[2019-03-22] MEDS: SODIUM CHLORIDE 0.9% 1,000 ML IV SCH (16:16)
[2019-03-22 16:29] LABS: PLATELET ESTIMATE NORMAL
[2019-03-22 20:00] VITALS: BP 138/83
[2019-03-22] MEDS: LEVOFLOXACIN 500MG PREMIX 100 ML IV SCH (20:08)
[2019-03-23] VITALS: BP 132/86
[2019-03-23] MEDS: SODIUM CHLORIDE 0.9% 1,000 ML IV SCH ×2 (03:16→13:08)
[2019-03-23] MEDS: HYDROMORPHONE HCL/PF 2MG/ML CPJ IV PRN ×5 (03:44→20:59)
[2019-03-23 04:00] VITALS: BP 133/87
[2019-03-23 05:34] LABS: CHLORIDE 102 mEq/L (98-107)
[2019-03-23 06:13] LABS: HEMATOCRIT. 26.4 % (42.0-52.0); HEMOGLOBIN. 8.9 g/dL (14.0-18.0); MEAN CORPUSCULAR HEMOGLOBIN 30.9 pg (28.0-32.0); MEAN CORPUSCULAR VOLUME 91.7 fL (80.0-94.0); MEAN PLATELET VOLUME 7.5 fl (7.4-10.4); PLATELET 195 x1000/uL (130-400); RED BLOOD CELL COUNT 2.88 mill/uL (4.7-6.1)
[2019-03-23] MEDS: BLOOD SUGAR DIAGNOSTIC STRIP TEST SCH ×4 (07:29→21:00)
[2019-03-23] MEDS: INSULIN LISPRO 100 UNITS/ML SUBCUT SCH ×4 (07:50→21:00)
[2019-03-23 08:00] VITALS: BP 159/85
[2019-03-23] MEDS: ENOXAPARIN 40MG/0.4ML SYR SUBCUT SCH (10:17)
[2019-03-23] MEDS: PANTOPRAZOLE SODIUM 40 MG/VIAL IV SCH ×2 (10:17→17:02)
[2019-03-23 12:00] VITALS: BP 152/83
[2019-03-23] MEDS ORDERED: POTASSIUM CHLORIDE INJ 40 MEQ in DEXT 5% WATER 500 ML IV NR (13:00)
[2019-03-23 14:21] LABS: ATYPICAL LYMPHOCYTES 1; NUCLEATED RED BLOOD CELLS 1 /100 WBC; PLATELET ESTIMATE NORMAL
[2019-03-23 16:00] VITALS: BP_SYST 153; BP_SYST 163; BP_DIAS 80
[2019-03-23 20:00] VITALS: BP 125/82
[2019-03-23] MEDS: LEVOFLOXACIN 500MG PREMIX 100 ML IV SCH (20:58)
[2019-03-24] VITALS: BP 121/78
[2019-03-24] MEDS: HYDROMORPHONE HCL/PF 2MG/ML CPJ IV PRN ×6 (00:59→20:49)
[2019-03-24] MEDS: SODIUM CHLORIDE 0.9% 1,000 ML IV SCH ×3 (02:12→16:00)
[2019-03-24 04:00] VITALS: BP 159/78
[2019-03-24 07:42] LABS: EOSINOPHILS % 0.6 % (0.0-5.0); HEMATOCRIT. 26.2 % (42.0-52.0); HEMOGLOBIN. 8.8 g/dL (14.0-18.0); MEAN CORPUSCULAR HEMOGLOBIN 30.8 pg (28.0-32.0); MEAN CORPUSCULAR VOLUME 92.1 fL (80.0-94.0); MONOCYTES % 13.2 % (2.0-8.0); NEUTROPHILS % 71.2 % (40.0-76.0); PLATELET 225 x1000/uL (130-400); RED BLOOD CELL COUNT 2.84 mill/uL (4.7-6.1); RED CELL DISTRIBUTION WIDTH 15.2 % (11.6-14.6)
[2019-03-24] MEDS: INSULIN LISPRO 100 UNITS/ML SUBCUT SCH ×4 (07:50→21:00)
[2019-03-24 08:00] VITALS: BP 118/83
[2019-03-24] MEDS: ENOXAPARIN 40MG/0.4ML SYR SUBCUT SCH (08:09)
[2019-03-24] MEDS: PANTOPRAZOLE SODIUM 40 MG/VIAL IV SCH ×2 (08:09→16:47)
[2019-03-24] MEDS: BLOOD SUGAR DIAGNOSTIC STRIP TEST SCH ×4 (08:11→21:00)
[2019-03-24 08:43] LABS: CHLORIDE 103 mEq/L (98-107)
[2019-03-24] MEDS ORDERED: POTASSIUM CHLORIDE 20MEQ TABLET SR PO NR (10:00)
[2019-03-24] MEDS ORDERED: BISACODYL 10MG SUPP PR PRN (10:00)
[2019-03-24 12:00] VITALS: BP 125/87
[2019-03-24 16:00] VITALS: BP 136/92
[2019-03-24 20:00] VITALS: BP 132/87
[2019-03-24] MEDS: LEVOFLOXACIN 500MG PREMIX 100 ML IV SCH (20:48)
[2019-03-24] MEDS: QUETIAPINE FUMARATE 50MG TABLET PO SCH (21:00)
[2019-03-25] VITALS: BP 142/92
[2019-03-25] MEDS: HYDROMORPHONE HCL/PF 2MG/ML CPJ IV PRN ×5 (00:38→20:05)
[2019-03-25] MEDS: SODIUM CHLORIDE 0.9% 1,000 ML IV SCH ×3 (00:38→18:35)
[2019-03-25 04:00] VITALS: BP 152/96
[2019-03-25] MEDS: BLOOD SUGAR DIAGNOSTIC STRIP TEST SCH ×4 (06:11→21:00)
[2019-03-25 07:15] LABS: BASOPHILS % 0.3 % (0.0-2.0); EOSINOPHILS % 0.4 % (0.0-5.0); HEMOGLOBIN. 9.1 g/dL (14.0-18.0); LYMPHOCYTES % 9.9 % (20.0-50.0); MEAN CORPUSCULAR HEMOGLOBIN 30.1 pg (28.0-32.0); MEAN CORPUSCULAR VOLUME 92.2 fL (80.0-94.0); MEAN PLATELET VOLUME 7.5 fl (7.4-10.4); MONOCYTES % 9.8 % (2.0-8.0); NEUTROPHILS % 79.6 % (40.0-76.0); PLATELET 296 x1000/uL (130-400); RED BLOOD CELL COUNT 3.03 mill/uL (4.7-6.1); RED CELL DISTRIBUTION WIDTH 15.7 % (11.6-14.6)
[2019-03-25 07:20] LABS: CHLORIDE 101 mEq/L (98-107)
[2019-03-25] MEDS: INSULIN LISPRO 100 UNITS/ML SUBCUT SCH ×4 (07:50→21:00)
[2019-03-25 08:00] VITALS: BP 137/90
[2019-03-25] MEDS: PANTOPRAZOLE SODIUM 40 MG/VIAL IV SCH ×2 (08:38→16:00)
[2019-03-25] MEDS: ENOXAPARIN 40MG/0.4ML SYR SUBCUT SCH (08:38)
[2019-03-25] MEDS ORDERED: POTASSIUM CHLORIDE 20MEQ TABLET SR PO NR (09:00)
[2019-03-25] MEDS: LORAZEPAM 2MG/ML CPJ IV PRN ×2 (11:58→21:54)
[2019-03-25 16:00] VITALS: BP 132/98
[2019-03-25] MEDS ORDERED: BISACODYL 10MG SUPP PR NR (17:15)
[2019-03-25 20:00] VITALS: BP 127/83
[2019-03-25] MEDS: LEVOFLOXACIN 500MG PREMIX 100 ML IV SCH (20:05)
[2019-03-25] MEDS: QUETIAPINE FUMARATE 50MG TABLET PO SCH (20:05)
[2019-03-26] VITALS: BP 133/79
[2019-03-26] MEDS: SODIUM CHLORIDE 0.9% 1,000 ML IV SCH ×3 (00:43→20:08)
[2019-03-26] MEDS: HYDROMORPHONE HCL/PF 2MG/ML CPJ IV PRN ×4 (02:09→22:45)
[2019-03-26 04:00] VITALS: BP 125/81
[2019-03-26] MEDS: INSULIN LISPRO 100 UNITS/ML SUBCUT SCH ×4 (07:50→21:42)
[2019-03-26 08:00] VITALS: BP 106/74
[2019-03-26] MEDS: BLOOD SUGAR DIAGNOSTIC STRIP TEST SCH ×4 (08:15→21:00)
[2019-03-26] MEDS: LORAZEPAM 2MG/ML CPJ IV PRN ×2 (08:19→20:07)
[2019-03-26] MEDS: BISACODYL 10MG SUPP PR SCH (08:19)
[2019-03-26] MEDS: PANTOPRAZOLE SODIUM 40 MG/VIAL IV SCH ×2 (08:19→17:24)
[2019-03-26] MEDS: ENOXAPARIN 40MG/0.4ML SYR SUBCUT SCH (08:20)
[2019-03-26 12:00] VITALS: BP 117/71
[2019-03-26 14:54] LABS: FOLIC ACID (FOLATE) SERUM 8.4 ng/mL (>5.38)
[2019-03-26 16:00] VITALS: BP 122/72
[2019-03-26 20:00] VITALS: BP 126/67
[2019-03-26] MEDS: LEVOFLOXACIN 500MG PREMIX 100 ML IV SCH (20:06)
[2019-03-26] MEDS: QUETIAPINE FUMARATE 50MG TABLET PO SCH ×3 (20:07→20:35)
[2019-03-27] VITALS: BP 130/96
[2019-03-27] MEDS: SODIUM CHLORIDE 0.9% 1,000 ML IV SCH ×4 (03:10→20:41)
[2019-03-27] MEDS: LORAZEPAM 2MG/ML CPJ IV PRN ×3 (03:21→20:41)
[2019-03-27 04:00] VITALS: BP 122/71
[2019-03-27] MEDS: HYDROMORPHONE HCL/PF 2MG/ML CPJ IV PRN ×4 (05:35→18:50)
[2019-03-27 07:14] LABS: BASOPHILS % 0.5 % (0.0-2.0); HEMATOCRIT. 23.5 % (42.0-52.0); HEMOGLOBIN. 7.8 g/dL (14.0-18.0); LYMPHOCYTES % 17.8 % (20.0-50.0); MEAN CORPUSCULAR HEMOGLOBIN 30.2 pg (28.0-32.0); MEAN CORPUSCULAR VOLUME 90.7 fL (80.0-94.0); MEAN PLATELET VOLUME 7.4 fl (7.4-10.4); MONOCYTES % 7.9 % (2.0-8.0); NEUTROPHILS % 72.8 % (40.0-76.0); PLATELET 369 x1000/uL (130-400); RED BLOOD CELL COUNT 2.59 mill/uL (4.7-6.1); RED CELL DISTRIBUTION WIDTH 15.4 % (11.6-14.6)
[2019-03-27 07:17] LABS: CHLORIDE 107 mEq/L (98-107)
[2019-03-27] MEDS: BLOOD SUGAR DIAGNOSTIC STRIP TEST SCH ×4 (07:27→21:04)
[2019-03-27] MEDS: INSULIN LISPRO 100 UNITS/ML SUBCUT SCH ×4 (07:46→20:57)
[2019-03-27 08:00] VITALS: BP 123/83
[2019-03-27] MEDS: BISACODYL 10MG SUPP PR SCH (09:23)
[2019-03-27] MEDS: PANTOPRAZOLE SODIUM 40 MG/VIAL IV SCH ×2 (09:23→17:32)
[2019-03-27] MEDS: ENOXAPARIN 40MG/0.4ML SYR SUBCUT SCH (09:23)
[2019-03-27 12:00] VITALS: BP 120/84
[2019-03-27] MEDS ORDERED: POTASSIUM CHLORIDE 20MEQ/PACKET PO NR (12:00)
[2019-03-27] MEDS ORDERED: POTASSIUM CHLORIDE 20MEQ TABLET SR PO ONE (14:30)
[2019-03-27 15:38] LABS: TOTAL IRON BINDING CAPACITY 113 ug/dL (250-450)
[2019-03-27 16:00] VITALS: BP 127/80
[2019-03-27 20:00] VITALS: BP 134/89
[2019-03-27] MEDS: QUETIAPINE FUMARATE 50MG TABLET PO SCH (21:00)
[2019-03-28] VITALS: BP 119/65
[2019-03-28] MEDS: HYDROMORPHONE HCL/PF 2MG/ML CPJ IV PRN ×5 (00:28→19:37)
[2019-03-28 04:00] VITALS: BP 119/78
[2019-03-28] MEDS: BLOOD SUGAR DIAGNOSTIC STRIP TEST SCH ×4 (06:40→21:12)
[2019-03-28] MEDS: ENOXAPARIN 40MG/0.4ML SYR SUBCUT SCH (07:00)
[2019-03-28 07:04] LABS: BASOPHILS % 0.5 % (0.0-2.0); EOSINOPHILS % 1.1 % (0.0-5.0); HEMATOCRIT. 25.1 % (42.0-52.0); HEMOGLOBIN. 8.3 g/dL (14.0-18.0); LYMPHOCYTES % 16.8 % (20.0-50.0); MEAN CORPUSCULAR HEMOGLOBIN 30.2 pg (28.0-32.0); MEAN CORPUSCULAR VOLUME 91.9 fL (80.0-94.0); MEAN PLATELET VOLUME 7.3 fl (7.4-10.4); MONOCYTES % 8.3 % (2.0-8.0); NEUTROPHILS % 73.3 % (40.0-76.0); PLATELET 426 x1000/uL (130-400); RED BLOOD CELL COUNT 2.74 mill/uL (4.7-6.1); RED CELL DISTRIBUTION WIDTH 15.8 % (11.6-14.6)
[2019-03-28 07:27] LABS: CHLORIDE 106 mEq/L (98-107)
[2019-03-28] MEDS: INSULIN LISPRO 100 UNITS/ML SUBCUT SCH ×4 (07:50→21:26)
[2019-03-28 08:00] VITALS: BP 121/74
[2019-03-28] MEDS: BISACODYL 10MG SUPP PR SCH (08:19)
[2019-03-28] MEDS: PANTOPRAZOLE SODIUM 40 MG/VIAL IV SCH ×2 (08:19→17:44)
[2019-03-28 11:02] LABS: INR 1.2; PARTIAL THROMBOPLASTIN TIME 32.9 sec (23.4-31.0)
[2019-03-28 12:00] VITALS: BP 128/84
[2019-03-28] MEDS: LORAZEPAM 2MG/ML CPJ IV PRN ×2 (12:21→21:25)
[2019-03-28 16:00] VITALS: BP 124/79
[2019-03-28 20:00] VITALS: BP 110/80
[2019-03-28] MEDS: QUETIAPINE FUMARATE 50MG TABLET PO SCH (21:12)
[2019-03-29] VITALS: BP 110/75
[2019-03-29 04:00] VITALS: BP 109/66
[2019-03-29] MEDS: LORAZEPAM 2MG/ML CPJ IV PRN ×2 (04:13→16:52)
[2019-03-29] MEDS: BLOOD SUGAR DIAGNOSTIC STRIP TEST SCH ×4 (06:29→20:41)
[2019-03-29] MEDS: INSULIN LISPRO 100 UNITS/ML SUBCUT SCH ×4 (07:50→20:41)
[2019-03-29] MEDS: PANTOPRAZOLE SODIUM 40 MG/VIAL IV SCH ×2 (08:39→16:30)
[2019-03-29] MEDS: BISACODYL 10MG SUPP PR SCH (08:40)
[2019-03-29] MEDS: ENOXAPARIN 40MG/0.4ML SYR SUBCUT SCH (08:40)
[2019-03-29] MEDS: SODIUM CHLORIDE 0.9% 1,000 ML IV SCH ×2 (08:43→15:01)
[2019-03-29] MEDS: HYDROMORPHONE HCL/PF 2MG/ML CPJ IV PRN ×5 (08:53→23:31)
[2019-03-29 12:26] VITALS: BP 111/62
[2019-03-29] MEDS ORDERED: BARIUM SULFATE 176 GM SUSP.RECON ONE (14:25)
[2019-03-29] MEDS ORDERED: DIATR MEGLU/DIATRIZOATE SOLN 120ML ONE (14:30)
[2019-03-29] MEDS: ALPRAZOLAM 0.25 MG TABLET PO SCH ×2 (16:15→22:00)
[2019-03-29 16:25] VITALS: BP 110/65
[2019-03-29 20:00] VITALS: BP 126/79
[2019-03-29] MEDS: QUETIAPINE FUMARATE 50MG TABLET PO SCH (20:35)
[2019-03-29] MEDS: GUAIFENESIN 600MG ER TABLET PO SCH (20:42)
[2019-03-30] VITALS: BP 169/92
[2019-03-30] MEDS: IPRATROPIUM/ALBUTEROL 0.5-3(2.5)MG/3ML NEB HHN SCH ×6 (00:07→20:00)
[2019-03-30] MEDS: SODIUM CHLORIDE 0.9% 1,000 ML IV SCH ×4 (02:30→17:11)
[2019-03-30 04:00] VITALS: BP 128/71
[2019-03-30] MEDS: HYDROMORPHONE HCL/PF 2MG/ML CPJ IV PRN ×5 (05:28→21:25)
[2019-03-30] MEDS: ALPRAZOLAM 0.25 MG TABLET PO SCH ×2 (06:00→13:55)
[2019-03-30] MEDS: BLOOD SUGAR DIAGNOSTIC STRIP TEST SCH ×4 (06:23→21:00)
[2019-03-30 06:44] LABS: BASOPHILS % 0.5 % (0.0-2.0); EOSINOPHILS % 1.1 % (0.0-5.0); HEMATOCRIT. 26.2 % (42.0-52.0); HEMOGLOBIN. 8.5 g/dL (14.0-18.0); LYMPHOCYTES % 17.6 % (20.0-50.0); MEAN CORPUSCULAR HEMOGLOBIN 30.1 pg (28.0-32.0); MEAN CORPUSCULAR VOLUME 92.2 fL (80.0-94.0); MEAN PLATELET VOLUME 7.6 fl (7.4-10.4); MONOCYTES % 7.5 % (2.0-8.0); NEUTROPHILS % 73.3 % (40.0-76.0); PLATELET 555 x1000/uL (130-400); RED BLOOD CELL COUNT 2.84 mill/uL (4.7-6.1); RED CELL DISTRIBUTION WIDTH 15.9 % (11.6-14.6)
[2019-03-30 06:46] LABS: CHLORIDE 107 mEq/L (98-107)
[2019-03-30] MEDS: INSULIN LISPRO 100 UNITS/ML SUBCUT SCH ×4 (07:50→21:00)
[2019-03-30] MEDS: GUAIFENESIN 600MG ER TABLET PO SCH ×2 (08:49→21:00)
[2019-03-30] MEDS: ENOXAPARIN 40MG/0.4ML SYR SUBCUT SCH (08:49)
[2019-03-30] MEDS: LORAZEPAM 2MG/ML CPJ IV PRN (08:49)
[2019-03-30] MEDS: BISACODYL 10MG SUPP PR SCH (08:49)
[2019-03-30] MEDS: PANTOPRAZOLE SODIUM 40 MG/VIAL IV SCH ×2 (08:49→17:10)
[2019-03-30 14:12] LABS: QFT MITOGEN VALUE 3.45 IU/mL (.); QFT TB GOLD PLUS Negative (Negative); QFT TB1 AG VALUE 0.04 IU/mL (.)
[2019-03-30 16:00] VITALS: BP 103/74
[2019-03-30 20:00] VITALS: BP 122/78
[2019-03-30] MEDS: QUETIAPINE FUMARATE 50MG TABLET PO SCH (21:00)
[2019-03-31] VITALS: BP 129/80
[2019-03-31] MEDS: ALPRAZOLAM 0.25 MG TABLET PO SCH ×4 (00:06→23:16)
[2019-03-31] MEDS: IPRATROPIUM/ALBUTEROL 0.5-3(2.5)MG/3ML NEB HHN SCH ×6 (01:43→21:39)
[2019-03-31] MEDS: HYDROMORPHONE HCL/PF 2MG/ML CPJ IV PRN ×5 (03:26→21:35)
[2019-03-31 04:00] VITALS: BP 131/71
[2019-03-31] MEDS: BLOOD SUGAR DIAGNOSTIC STRIP TEST SCH ×4 (07:07→21:00)
[2019-03-31] MEDS: SODIUM CHLORIDE 0.9% 1,000 ML IV SCH ×2 (07:23→14:03)
[2019-03-31] MEDS: INSULIN LISPRO 100 UNITS/ML SUBCUT SCH ×4 (07:50→21:00)
[2019-03-31 08:00] VITALS: BP 111/70
[2019-03-31] MEDS: BISACODYL 10MG SUPP PR SCH (08:59)
[2019-03-31] MEDS: ENOXAPARIN 40MG/0.4ML SYR SUBCUT SCH (08:59)
[2019-03-31] MEDS: PANTOPRAZOLE SODIUM 40 MG/VIAL IV SCH ×2 (08:59→17:19)
[2019-03-31] MEDS: GUAIFENESIN 600MG ER TABLET PO SCH ×2 (09:00→21:30)
[2019-03-31 09:16] LABS: BASOPHILS % 0.6 % (0.0-2.0); EOSINOPHILS % 0.9 % (0.0-5.0); HEMATOCRIT. 24.3 % (42.0-52.0); HEMOGLOBIN. 8.1 g/dL (14.0-18.0); LYMPHOCYTES % 18.7 % (20.0-50.0); MEAN CORPUSCULAR HEMOGLOBIN 31.1 pg (28.0-32.0); MEAN CORPUSCULAR VOLUME 92.7 fL (80.0-94.0); MEAN PLATELET VOLUME 7.8 fl (7.4-10.4); MONOCYTES % 7.8 % (2.0-8.0); PLATELET 599 x1000/uL (130-400); RED BLOOD CELL COUNT 2.62 mill/uL (4.7-6.1); RED CELL DISTRIBUTION WIDTH 15.7 % (11.6-14.6)
[2019-03-31 09:24] LABS: CHLORIDE 106 mEq/L (98-107)
[2019-03-31] MEDS: CALCIUM CARBONATE 1250MG TABLET (500MG ELEMENTAL CALCIUM) PO SCH (10:18)
[2019-03-31 12:00] VITALS: BP 128/85
[2019-03-31] MEDS: BISACODYL 5MG TABLET PO SCH (15:18)
[2019-03-31 16:00] VITALS: BP 107/71
[2019-03-31] MEDS: METOCLOPRAMIDE HCL 10MG TABLET PO SCH (17:20)
[2019-03-31 20:00] VITALS: BP 109/77
[2019-03-31] MEDS: QUETIAPINE FUMARATE 50MG TABLET PO SCH (21:30)
[2019-04-01] VITALS: BP 118/79
[2019-04-01] MEDS: METOCLOPRAMIDE HCL 10MG TABLET PO SCH ×3 (01:29→11:39)
[2019-04-01] MEDS: HYDROMORPHONE HCL/PF 2MG/ML CPJ IV PRN ×4 (01:37→11:39)
[2019-04-01] MEDS: SODIUM CHLORIDE 0.9% 1,000 ML IV SCH ×2 (01:38→05:05)
[2019-04-01 04:00] VITALS: BP 116/68
[2019-04-01] MEDS: IPRATROPIUM/ALBUTEROL 0.5-3(2.5)MG/3ML NEB HHN SCH ×4 (04:03→12:34)
[2019-04-01 06:15] LABS: CHLORIDE 104 mEq/L (98-107)
[2019-04-01 06:22] LABS: BASOPHILS % 0.6 % (0.0-2.0); EOSINOPHILS % 1.6 % (0.0-5.0); HEMATOCRIT. 25.8 % (42.0-52.0); HEMOGLOBIN. 8.4 g/dL (14.0-18.0); LYMPHOCYTES % 19.3 % (20.0-50.0); MEAN CORPUSCULAR HEMOGLOBIN 30.1 pg (28.0-32.0); MEAN CORPUSCULAR VOLUME 92.4 fL (80.0-94.0); MEAN PLATELET VOLUME 7.5 fl (7.4-10.4); MONOCYTES % 6.9 % (2.0-8.0); NEUTROPHILS % 71.6 % (40.0-76.0); PLATELET 633 x1000/uL (130-400); RED CELL DISTRIBUTION WIDTH 16.1 % (11.6-14.6)
[2019-04-01] MEDS: ALPRAZOLAM 0.25 MG TABLET PO SCH ×2 (06:57→13:32)
[2019-04-01] MEDS: BLOOD SUGAR DIAGNOSTIC STRIP TEST SCH ×2 (07:57→12:20)
[2019-04-01 08:00] VITALS: BP 127/66
[2019-04-01] MEDS: ENOXAPARIN 40MG/0.4ML SYR SUBCUT SCH (08:07)
[2019-04-01] MEDS: GUAIFENESIN 600MG ER TABLET PO SCH (08:07)
[2019-04-01] MEDS: BISACODYL 10MG SUPP PR SCH ×2 (08:07→08:33)
[2019-04-01] MEDS: PANTOPRAZOLE SODIUM 40 MG/VIAL IV SCH (08:07)
[2019-04-01] MEDS: CALCIUM CARBONATE 1250MG TABLET (500MG ELEMENTAL CALCIUM) PO SCH (08:07)
[2019-04-01] MEDS: BISACODYL 5MG TABLET PO SCH (08:07)
[2019-04-01] MEDS: INSULIN LISPRO 100 UNITS/ML SUBCUT SCH ×2 (08:15→12:50)
[2019-04-01] MEDS ORDERED: LEVO750T46 MT (10:36)
[2019-04-01 10:44] VITALS: BP 127/66
[2019-04-01 12:00] VITALS: BP 121/80
== END 2019-04-01 16:00 | disposition home or self-care (01) | DRG 720 ==
LOC: ER 01:23 → 6EST 06:09 → ENRESERV 08:12 → 6EST 03-19 04:32
PROVIDERS: ADMIT Internal Medicine; ATTEND Internal Medicine
PROC: 0W9B3ZZ Drainage of Left Pleural Cavity, Percutaneous Approach (ICD-10-PCS; principal; 2019-03-29)
DX: A41.9 Sepsis, unspecified organism (principal); J96.00 Acute respiratory failure, unspecified whether with hypoxia or hypercapnia; E43 Unspecified severe protein-calorie malnutrition; K56.600 Partial intestinal obstruction, unspecified as to cause; J91.8 Pleural effusion in other conditions classified elsewhere; J18.9 Pneumonia, unspecified organism; E83.42 Hypomagnesemia; K56.0 Paralytic ileus; K85.90 Acute pancreatitis without necrosis or infection, unspecified; E11.42 Type 2 diabetes mellitus with diabetic polyneuropathy; E11.65 Type 2 diabetes mellitus with hyperglycemia; K76.0 Fatty (change of) liver, not elsewhere classified; E83.51 Hypocalcemia; E87.1 Hypo-osmolality and hyponatremia; N39.0 Urinary tract infection, site not specified; F17.210 Nicotine dependence, cigarettes, uncomplicated; I10 Essential (primary) hypertension; D64.9 Anemia, unspecified; E87.6 Hypokalemia; R74.0 Nonspecific elevation of levels of transaminase and lactic acid dehydrogenase [LDH]; G24.01 Drug induced subacute dyskinesia; K92.2 Gastrointestinal hemorrhage, unspecified; K59.00 Constipation, unspecified; G25.9 Extrapyramidal and movement disorder, unspecified; J98.11 Atelectasis; R13.10 Dysphagia, unspecified; Z87.01 Personal history of pneumonia (recurrent); Z79.899 Other long term (current) drug therapy; Z88.0 Allergy status to penicillin; Z68.30 Body mass index [BMI] 30.0-30.9, adult
CPT/HCPCS: 32555; 36415; 70540; 71045; 71250; 74018; 74177; 74220; 76604; 80048; 80061; 80076; 81003; 82040; 82150; 82248; 82607; 82728; 82746; 82962; 83036; 83540; 83550; 83615; 83735; 84100; 84443; 84478; 86480; 86705; 86709; 86803; 87102; 87116; 87340; 87389; 88108; 88312; 92610; 93970; 94640; 96361; 96374; 96375; 96376; 97162; 97164; 97530; 99285; C1893; C9113; J0610; J1170; J1200; J1650; J1815; J1885; J1956; J2060; J2270; J2405; J3475; J3480; J7030; J7042; J7060; J7070; J7620; J8597; Q9963; Q9967

== ENCOUNTER 2019-09-03 04:55 | Emergency (ER) | payer MEDICAID ==
[~2019-09-03] VITALS: Ht 180.3 cm; Wt 91.0 kg
[~2019-09-03 04:55] MED LIST changes: +LEVO750T46 MT
[2019-09-03] MEDS ORDERED: SODIUM CHLORIDE 0.9% 1,000 ML IV ONE (06:14)
[2019-09-03] MEDS ORDERED: ASPIRIN 81MG TABLET PO ONE (06:15)
[2019-09-03] MEDS ORDERED: LORAZEPAM 2MG/ML CPJ IV ONE (06:15)
[2019-09-03 06:21] LABS: BASOPHILS % 0.8 % (0.0-2.0); EOSINOPHILS % 2.4 % (0.0-5.0); HEMATOCRIT. 41.5 % (42.0-52.0); HEMOGLOBIN. 13.8 g/dL (14.0-18.0); LYMPHOCYTES % 34.5 % (20.0-50.0); MEAN CORPUSCULAR HEMOGLOBIN 29.5 pg (28.0-32.0); MEAN CORPUSCULAR VOLUME 88.9 fL (80.0-94.0); MEAN PLATELET VOLUME 7.3 fl (7.4-10.4); MONOCYTES % 7.3 % (2.0-8.0); PLATELET 227 x1000/uL (130-400); RED BLOOD CELL COUNT 4.67 mill/uL (4.7-6.1); RED CELL DISTRIBUTION WIDTH 13.5 % (11.6-14.6)
[2019-09-03 07:33] LABS: CHLORIDE 101 mEq/L (98-107)
[2019-09-03 07:38] LABS: ETHANOL BLOOD < 10 mg/dL
[2019-09-03 09:06] LABS: *AMPHETAMINES SCREEN URINE NEGATIVE (NEGATIVE); *BARBITURATES SCREEN URINE NEGATIVE (NEGATIVE); *BENZODIAZEPINES SCREEN URINE NEGATIVE (NEGATIVE); *COCAINE SCREEN URINE NEGATIVE (NEGATIVE); CANNABINOID URINE SCREEN NEGATIVE (NEGATIVE); METHADONE URINE SCREEN NEGATIVE (NEGATIVE); OPIATES URINE SCREEN NEGATIVE (NEGATIVE); PHENCYCLIDINE URINE SCREEN NEGATIVE (NEGATIVE)
[2019-09-03 10:39] VITALS: BP 123/89
== END 2019-09-03 11:08 | disposition home or self-care (01) ==
LOC: ER 04:55
DX: G89.29 Other chronic pain (principal); R07.89 Other chest pain; M54.2 Cervicalgia; M79.602 Pain in left arm; R00.1 Bradycardia, unspecified; R73.9 Hyperglycemia, unspecified; E46 Unspecified protein-calorie malnutrition; Z68.28 Body mass index [BMI] 28.0-28.9, adult
CPT/HCPCS: 36415; 71045; 80053; 80305; 80320; 83690; 83880; 84484; 85025; 93005; 99285; J2060; J7030; Z7610; G0480

== ENCOUNTER 2019-09-07 05:14 | Emergency (ER) | payer MEDICAID, OTHER ==
[~2019-09-07] VITALS: Ht 182.9 cm; Wt 82.0 kg
[2019-09-07 05:17] VITALS: BP 138/86
[2019-09-07] MEDS ORDERED: ACETAMINOPHEN 325MG TABLET PO ONE (07:00)
== END 2019-09-07 07:50 | disposition home or self-care (01) ==
LOC: ER 05:14
DX: R52 Pain, unspecified (principal); R03.0 Elevated blood-pressure reading, without diagnosis of hypertension; Z87.19 Personal history of other diseases of the digestive system; Z79.899 Other long term (current) drug therapy; Z88.0 Allergy status to penicillin
CPT/HCPCS: 99283

== ENCOUNTER 2019-12-13 10:05 | Emergency (ER) | payer MEDICAID ==
[~2019-12-13] VITALS: Ht 170.2 cm; Wt 86.0 kg
[~2019-12-13 10:05] MED LIST changes: -LEVO750T46 MT
[2019-12-13 10:58] VITALS: BP 144/101
[2019-12-13] MEDS ORDERED: LORAZEPAM 0.5MG TABLET PO ONE (11:00)
[2019-12-13] MEDS ORDERED: DIPHENHYDRAMINE 50MG CAPSULE PO ONE (11:00)
[2019-12-13 11:02] LABS: BASOPHILS % 0.6 % (0.0-2.0); EOSINOPHILS % 1.4 % (0.0-5.0); HEMATOCRIT. 45.1 % (42.0-52.0); HEMOGLOBIN. 15.1 g/dL (14.0-18.0); LYMPHOCYTES % 33.7 % (20.0-50.0); MEAN CORPUSCULAR HEMOGLOBIN 29.2 pg (28.0-32.0); MEAN CORPUSCULAR VOLUME 87.5 fL (80.0-94.0); MEAN PLATELET VOLUME 7.1 fl (7.4-10.4); MONOCYTES % 5.1 % (2.0-8.0); NEUTROPHILS % 59.2 % (40.0-76.0); PLATELET 223 x1000/uL (130-400); RED BLOOD CELL COUNT 5.16 mill/uL (4.7-6.1); RED CELL DISTRIBUTION WIDTH 15.1 % (11.6-14.6)
[2019-12-13 11:11] LABS: CHLORIDE 104 mEq/L (98-107)
[2019-12-13 11:14] LABS: ETHANOL BLOOD 14 mg/dL
== END 2019-12-13 12:27 | disposition home or self-care (01) ==
LOC: ER 10:05
DX: G24.9 Dystonia, unspecified (principal); R00.0 Tachycardia, unspecified; Z88.0 Allergy status to penicillin; Z79.899 Other long term (current) drug therapy
CPT/HCPCS: 36415; 71045; 80053; 80320; 82962; 85025; 93005; 99285; Q0163; G0480

== ENCOUNTER 2019-12-30 15:48 | Inpatient (IN) | payer MEDICAID ==
[~2019-12-30] VITALS: Ht 180.3 cm; Wt 89.4 kg
[2019-12-30 16:32] LABS: BG BASE EXCESS -0.9 mmol/L (-2.0-2.0); BG CARBOXYHEMOGLOBIN 0.4 % (0.5-1.5); BG DEOXYHEMOGLOBIN 4.2 % (0.0-5.0); BG FRACTION INSPIRED OXYGEN 21; BG HCO3 ACT 23.3 mmol/L (22.0-26.0); BG METHEMOGLOBIN 0.1 % (0.0-1.5); BG OXYGEN SATURATION 95.8 % (92.0-98.5); BG OXYHEMOGLOBIN 95.3 % (94.0-97.0); BG PCO2 37.5 mmHg (35.0-45.0); BG PH 7.412 (7.350-7.450); BG PO2 83.8 mmHg (75.0-100.0); BG SAMPLE SITE RIGHT RADIAL; BG TOTAL HEMOGLOBIN 14.9 g/dL (12.0-18.0); BG VENT MODE ROOM AIR
[2019-12-30 16:36] LABS: BASOPHILS % 0.9 % (0.0-2.0); EOSINOPHILS % 0.9 % (0.0-5.0); HEMATOCRIT. 45.7 % (42.0-52.0); HEMOGLOBIN. 14.9 g/dL (14.0-18.0); LYMPHOCYTES % 30.5 % (20.0-50.0); MEAN CORPUSCULAR HEMOGLOBIN 28.9 pg (28.0-32.0); MEAN CORPUSCULAR VOLUME 88.8 fL (80.0-94.0); MEAN PLATELET VOLUME 7.6 fl (7.4-10.4); NEUTROPHILS % 60.7 % (40.0-76.0); PLATELET 184 x1000/uL (130-400); RED BLOOD CELL COUNT 5.15 mill/uL (4.7-6.1); RED CELL DISTRIBUTION WIDTH 15.5 % (11.6-14.6)
[2019-12-30 16:41] LABS: CHLORIDE 102 mEq/L (98-107)
[2019-12-30 16:45] LABS: INR 1.2; PROTHROMBIN TIME 12.6 sec (9.6-11.0)
[2019-12-30 16:48] LABS: LDL CHOLESTEROL 45 mg/dL (5-100)
[2019-12-30 16:49] LABS: ETHANOL BLOOD < 10 mg/dL
[2019-12-30] MEDS ORDERED: BLOOD SUGAR DIAGNOSTIC STRIP TEST SCH (17:00)
[2019-12-30] MEDS ORDERED: ASPIRIN 325MG EC TABLET PO ONE (18:15)
[2019-12-30] MEDS ORDERED: MORPHINE SULFATE 4 MG/ML CPJ (NOT FOR IM USE) IV ONE (18:30)
[2019-12-30 18:45] LABS: CLARITY URINE CLEAR (CLEAR); COLOR URINE YELLOW (YELLOW); KETONES URINE NEGATIVE (NEGATIVE); LEUKOCYTE ESTERASE URINE NEGATIVE (NEGATIVE); NITRITE URINE NEGATIVE (NEGATIVE); OCCULT BLOOD URINE NEGATIVE (NEGATIVE); PROTEIN URINE NEGATIVE (NEGATIVE); SPECIFIC GRAVITY URINE 1.024 (1.005-1.030); UROBILINOGEN URINE 0.2 E.U./dL (0.2-1.0)
[2019-12-30 18:59] LABS: *AMPHETAMINES SCREEN URINE NEGATIVE (NEGATIVE); *BARBITURATES SCREEN URINE NEGATIVE (NEGATIVE); *BENZODIAZEPINES SCREEN URINE NEGATIVE (NEGATIVE); *COCAINE SCREEN URINE NEGATIVE (NEGATIVE); CANNABINOID URINE SCREEN NEGATIVE (NEGATIVE); METHADONE URINE SCREEN NEGATIVE (NEGATIVE); OPIATES URINE SCREEN NEGATIVE (NEGATIVE); PHENCYCLIDINE URINE SCREEN NEGATIVE (NEGATIVE)
[2019-12-30 22:40] VITALS: BP 126/91
[2019-12-31] VITALS: BP 126/91
[2019-12-31 06:33] LABS: CHLORIDE 102 mEq/L (98-107)
[2019-12-31 06:42] LABS: BASOPHILS % 0.5 % (0.0-2.0); EOSINOPHILS % 1.3 % (0.0-5.0); HEMATOCRIT. 43.2 % (42.0-52.0); HEMOGLOBIN. 14.2 g/dL (14.0-18.0); LYMPHOCYTES % 40.8 % (20.0-50.0); MEAN CORPUSCULAR HEMOGLOBIN 29.1 pg (28.0-32.0); MEAN CORPUSCULAR VOLUME 88.3 fL (80.0-94.0); MEAN PLATELET VOLUME 7.1 fl (7.4-10.4); MONOCYTES % 7.2 % (2.0-8.0); NEUTROPHILS % 50.2 % (40.0-76.0); PLATELET 172 x1000/uL (130-400)
[2019-12-31 06:48] LABS: CREATINE KINASE 67 IU/L (39-308)
[2019-12-31 06:51] LABS: CREATINE KINASE MB FRACTION < 1.0 ng/mL (0.5-3.6)
[2019-12-31 08:00] VITALS: BP 119/85
[2019-12-31 12:00] VITALS: BP 112/59
[2019-12-31 16:00] VITALS: BP 122/88
[2019-12-31 16:58] LABS: CREATINE KINASE 59 IU/L (39-308)
[2019-12-31 16:59] LABS: CREATINE KINASE MB FRACTION < 1.0 ng/mL (0.5-3.6)
[2019-12-31 20:00] VITALS: BP 132/98
[2019-12-31] MEDS ORDERED: DEXTROSE 50% WATER 50ML SYRINGE IV PRN (20:15)
[2019-12-31] MEDS: BLOOD SUGAR DIAGNOSTIC STRIP TEST SCH (20:49)
[2019-12-31] MEDS: INSULIN LISPRO 100 UNITS/ML SUBCUT SCH (21:33)
[2019-12-31] MEDS: HYDROCODONE/ACETAMINOPHEN 5/325MG TABLET PO PRN (23:15)
[2020-01-01 04:00] VITALS: BP 125/94
[2020-01-01] MEDS: HYDROCODONE/ACETAMINOPHEN 5/325MG TABLET PO PRN ×3 (05:18→21:19)
[2020-01-01] MEDS: BLOOD SUGAR DIAGNOSTIC STRIP TEST SCH ×4 (06:57→21:18)
[2020-01-01] MEDS: INSULIN LISPRO 100 UNITS/ML SUBCUT SCH ×4 (06:57→21:00)
[2020-01-01 08:00] VITALS: BP 125/74
[2020-01-01 08:25] LABS: BG BASE EXCESS 2.7 mmol/L (-2.0-2.0); BG CARBOXYHEMOGLOBIN 0.8 % (0.5-1.5); BG DEOXYHEMOGLOBIN 4.1 % (0.0-5.0); BG FRACTION INSPIRED OXYGEN 21; BG HCO3 ACT 27.8 mmol/L (22.0-26.0); BG METHEMOGLOBIN 0.2 % (0.0-1.5); BG OXYGEN SATURATION 95.9 % (92.0-98.5); BG OXYHEMOGLOBIN 94.9 % (94.0-97.0); BG PCO2 44.7 mmHg (35.0-45.0); BG PH 7.412 (7.350-7.450); BG PO2 84.3 mmHg (75.0-100.0); BG SAMPLE SITE RIGHT RADIAL; BG TOTAL HEMOGLOBIN 14.4 g/dL (12.0-18.0); BG VENT MODE ROOM AIR
[2020-01-01 12:00] VITALS: BP 118/84
[2020-01-01] MEDS: SODIUM CHLORIDE 0.9% 1,000 ML IV SCH (17:29)
[2020-01-01 20:00] VITALS: BP 121/82
[2020-01-01] MEDS ORDERED: ZOLPIDEM TARTRATE 5MG TABLET PO PRN (21:00)
[2020-01-01] MEDS: BACLOFEN 10MG TABLET PO SCH (22:06)
[2020-01-02] MEDS: SODIUM CHLORIDE 0.9% 1,000 ML IV SCH ×2 (01:02→12:00)
[2020-01-02] MEDS: HYDROCODONE/ACETAMINOPHEN 5/325MG TABLET PO PRN ×2 (05:39→12:19)
[2020-01-02] MEDS: BACLOFEN 10MG TABLET PO SCH ×2 (06:08→14:40)
[2020-01-02 06:26] LABS: BASOPHILS % 0.4 % (0.0-2.0); EOSINOPHILS % 1.4 % (0.0-5.0); HEMATOCRIT. 42.6 % (42.0-52.0); LYMPHOCYTES % 37.5 % (20.0-50.0); MEAN CORPUSCULAR HEMOGLOBIN 29.3 pg (28.0-32.0); MEAN CORPUSCULAR VOLUME 89.3 fL (80.0-94.0); MEAN PLATELET VOLUME 7.5 fl (7.4-10.4); MONOCYTES % 6.9 % (2.0-8.0); NEUTROPHILS % 53.8 % (40.0-76.0); PLATELET 158 x1000/uL (130-400); RED BLOOD CELL COUNT 4.77 mill/uL (4.7-6.1); RED CELL DISTRIBUTION WIDTH 15.3 % (11.6-14.6)
[2020-01-02 07:04] LABS: CHLORIDE 104 mEq/L (98-107)
[2020-01-02] MEDS: BLOOD SUGAR DIAGNOSTIC STRIP TEST SCH ×3 (07:05→17:20)
[2020-01-02 07:17] LABS: LDL CHOLESTEROL 71 mg/dL (5-100)
[2020-01-02 07:18] LABS: HDL CHOLESTEROL 36 mg/dL (40-59)
[2020-01-02 08:00] VITALS: BP 130/93
[2020-01-02] MEDS: INSULIN LISPRO 100 UNITS/ML SUBCUT SCH ×3 (08:35→17:35)
[2020-01-02 12:00] VITALS: BP 110/78
[2020-01-02 16:00] VITALS: BP 115/52
[2020-01-02 16:31] VITALS: BP 115/52
== END 2020-01-02 18:47 | disposition home health service (06) | DRG 47 ==
LOC: ER 15:48 → 8WST 18:17 → EDBEDREQ 18:23 → EDBEDREQTM 18:23 → EDBEDREQSVC 18:24 → ENRESERV 21:43 → 6EST 01-01 04:24
PROVIDERS: ADMIT Internal Medicine; ATTEND Internal Medicine
DX: G45.9 Transient cerebral ischemic attack, unspecified (principal); M26.603 Bilateral temporomandibular joint disorder, unspecified; G24.01 Drug induced subacute dyskinesia; E78.5 Hyperlipidemia, unspecified; I10 Essential (primary) hypertension; R29.810 Facial weakness; R74.0 Nonspecific elevation of levels of transaminase and lactic acid dehydrogenase [LDH]; E11.9 Type 2 diabetes mellitus without complications; Z88.0 Allergy status to penicillin; Z79.899 Other long term (current) drug therapy
CPT/HCPCS: 36415; 36600; 71045; 80048; 80053; 80061; 80076; 80305; 80320; 81003; 82375; 82550; 82553; 82805; 82962; 83721; 84484; 85025; 85384; 93005; 96374; 97162; 97166; 99291; J1815; J2270; J7030; G0480

== ENCOUNTER 2020-01-26 03:00 | Emergency (ER) | payer MEDICAID ==
[~2020-01-26] VITALS: Ht 177.8 cm; Wt 82.0 kg
[2020-01-26] MEDS ORDERED: KETOROLAC 60MG/2ML VIAL IM ONE (04:00)
[2020-01-26] MEDS ORDERED: MORPHINE SULFATE 10 MG/ML CPJ IM ONE (05:30)
[2020-01-26 09:17] VITALS: BP 138/97
== END 2020-01-26 09:18 | disposition home or self-care (01) ==
LOC: ER 03:00
DX: M26.609 Unspecified temporomandibular joint disorder, unspecified side (principal)
CPT/HCPCS: 70490; 93005; 96372; 99285; J1885; J2270

== ENCOUNTER 2020-02-01 20:09 | Emergency (ER) | payer MEDICAID ==
[~2020-02-01] VITALS: Ht 172.7 cm; Wt 90.0 kg
[2020-02-01] MEDS: DIPHENHYDRAMINE 25MG CAPSULE PO ONE ×2 (20:49→21:04)
[2020-02-01] MEDS: ACETAMINOPHEN 325MG TABLET PO ONE ×2 (20:49→21:04)
[2020-02-01 21:06] VITALS: BP 134/100
== END 2020-02-01 21:06 | disposition home or self-care (01) ==
LOC: ER 20:09
DX: G24.02 Drug induced acute dystonia (principal); T50.905A Adverse effect of unspecified drugs, medicaments and biological substances, initial encounter; M26.609 Unspecified temporomandibular joint disorder, unspecified side; E11.9 Type 2 diabetes mellitus without complications
CPT/HCPCS: 82962; 93005; 99283; Q0163

== ENCOUNTER 2022-09-18 13:44 | Inpatient (IN) | payer MEDICAID ==
[~2022-09-18] VITALS: Ht 180.3 cm; Wt 78.9 kg
[~2022-09-18 13:44] MED LIST changes: +BENZ0.5T43 PO; +GLIM4TAB36 MT; +METF-414 MT
[2022-09-18] MEDS ORDERED: MAGNESIUM/ALUMINUM HYDROXIDE/SIMETHICONE 30ML UDC PO NR (15:00)
[2022-09-18] MEDS ORDERED: VISCOUS LIDOCAINE 2% 15 ML UDC MM NR (15:00)
[2022-09-18 15:21] LABS: BASOPHILS % 0.2 % (0.0-2.0); EOSINOPHILS % 0.4 % (0.0-5.0); HEMATOCRIT. 40.5 % (42.0-52.0); HEMOGLOBIN. 13.5 g/dL (14.0-18.0); LYMPHOCYTES % 14.4 % (20.0-50.0); MEAN CORPUSCULAR HEMOGLOBIN 31.6 pg (28.0-32.0); MEAN CORPUSCULAR VOLUME 94.6 fL (80.0-94.0); MEAN PLATELET VOLUME 7.2 fl (7.4-10.4); MONOCYTES % 8.4 % (2.0-8.0); NEUTROPHILS % 76.6 % (40.0-76.0); PLATELET 152 x1000/uL (130-400); RED BLOOD CELL COUNT 4.28 mill/uL (4.7-6.1); RED CELL DISTRIBUTION WIDTH 13.7 % (11.6-14.6)
[2022-09-18 15:53] LABS: CHLORIDE 104 mEq/L (98-107)
[2022-09-18 16:02] LABS: BETA HYDROXYBUTYRATE 1.5 mMol/L (0.0-0.3); ETHANOL BLOOD < 10 mg/dL; PHOSPHORUS 2.4 mg/dL (2.5-4.9)
[2022-09-18] MEDS ORDERED: MORPHINE SULFATE 4 MG/ML CPJ (NOT FOR IM USE) IV ONE (17:00)
[2022-09-18] MEDS ORDERED: MORPHINE SULFATE 4 MG/ML CPJ (NOT FOR IM USE) IV NR (17:00)
[2022-09-18] MEDS ORDERED: ONDANSETRON HCL 4MG/2ML INJ IV ONE (17:00)
[2022-09-18] MEDS ORDERED: ONDANSETRON HCL 4MG/2ML INJ IV NR (17:00)
[2022-09-18] MEDS ORDERED: LACTATED RINGERS 1,000 ML IV ONE (17:00)
[2022-09-18] MEDS ORDERED: ONDANSETRON HCL 4MG/2ML INJ IV PRN (22:15)
[2022-09-18] MEDS ORDERED: CLONIDINE 0.1MG TABLET PO PRN ×2 (22:15→22:30)
[2022-09-18] MEDS ORDERED: MAGNESIUM/ALUMINUM HYDROXIDE/SIMETHICONE 30ML UDC PO PRN ×2 (22:15→22:30)
[2022-09-18] MEDS ORDERED: GUAIFENESIN 200MG/10ML SUGAR FREE UDC PO PRN ×2 (22:15→22:30)
[2022-09-18] MEDS ORDERED: KETOROLAC 30MG/ML VIAL IV PRN (22:15)
[2022-09-18] MEDS ORDERED: ACETAMINOPHEN 325MG TABLET PO PRN ×4 (22:15→22:30)
[2022-09-18] MEDS ORDERED: ZOLPIDEM TARTRATE 5MG TABLET PO PRN (22:15)
[2022-09-18] MEDS ORDERED: DOCUSATE SODIUM 100MG CAPSULE PO PRN (22:15)
[2022-09-18] MEDS: LACTATED RINGERS 1,000 ML IV SCH (22:15)
[2022-09-18] MEDS ORDERED: IPRATROPIUM/ALBUTEROL 0.5-3(2.5)MG/3ML NEB HHN PRN ×2 (22:15→22:30)
[2022-09-18] MEDS ORDERED: LORAZEPAM 2MG/ML CPJ IV PRN (22:30)
[2022-09-18] MEDS ORDERED: MAGNESIUM 2 G PREMIX 50 ML IV NR (22:45)
[2022-09-18] MEDS ORDERED: PANTOPRAZOLE SODIUM 40 MG/VIAL IV SCH (23:00)
[2022-09-18 23:14] LABS: FOLIC ACID (FOLATE) SERUM >20 ng/mL ng/mL (>5.38)
[2022-09-18 23:32] LABS: VITAMIN B12 SERUM 1347 pg/mL (211-911)
[2022-09-18] MEDS: BACLOFEN 10MG TABLET PO SCH (23:39)
[2022-09-18] MEDS: ENOXAPARIN 40MG/0.4ML SYR SUBCUT SCH (23:42)
[2022-09-19 00:20] LABS: *AMPHETAMINES SCREEN URINE NEGATIVE (NEGATIVE); *BARBITURATES SCREEN URINE NEGATIVE (NEGATIVE); *BENZODIAZEPINES SCREEN URINE NEGATIVE (NEGATIVE); *COCAINE SCREEN URINE NEGATIVE (NEGATIVE); CANNABINOID URINE SCREEN NEGATIVE (NEGATIVE); METHADONE URINE SCREEN NEGATIVE (NEGATIVE); OPIATES URINE SCREEN PRESUMTIVE POSITIVE (NEGATIVE); PHENCYCLIDINE URINE SCREEN NEGATIVE (NEGATIVE)
[2022-09-19 00:21] LABS: CLARITY URINE CLEAR (CLEAR); COLOR URINE YELLOW (YELLOW); KETONES URINE 2+ (NEGATIVE); LEUKOCYTE ESTERASE URINE NEGATIVE (NEGATIVE); NITRITE URINE NEGATIVE (NEGATIVE); OCCULT BLOOD URINE NEGATIVE (NEGATIVE); PH URINE 5.5 (4.5-8.0); PROTEIN URINE TRACE (NEGATIVE); SPECIFIC GRAVITY URINE 1.066 (1.005-1.030); UROBILINOGEN URINE 0.2 E.U./dL (0.2-1.0)
[2022-09-19] MEDS: KETOROLAC 30MG/ML VIAL IV PRN ×2 (01:04→06:55)
[2022-09-19 05:07] VITALS: BP 131/87
[2022-09-19 05:12] VITALS: BP 131/87
[2022-09-19] MEDS ORDERED: CLIN-194 PO (05:56)
[2022-09-19] MEDS ORDERED: ATOR10TA PO (05:56)
[2022-09-19] MEDS ORDERED: POLY17PO3 PO (05:56)
[2022-09-19] MEDS: BACLOFEN 10MG TABLET PO SCH ×3 (06:00→22:31)
[2022-09-19] MEDS: LACTATED RINGERS 1,000 ML IV SCH ×3 (06:01→22:32)
[2022-09-19 08:00] VITALS: BP 145/95
[2022-09-19] MEDS ORDERED: PANTOPRAZOLE SODIUM 40 MG/VIAL IV SCH (09:00)
[2022-09-19] MEDS ORDERED: MAGNESIUM 2 G PREMIX 50 ML IV SCH (09:00)
[2022-09-19] MEDS ORDERED: POTASSIUM PHOS,M-BASIC-D-BASIC 10 MMOL in DEXT 5% WATER 250 ML IV SCH (09:00)
[2022-09-19 10:17] LABS: BASOPHILS % 0.3 % (0.0-2.0); EOSINOPHILS % 1.4 % (0.0-5.0); HEMATOCRIT. 36.1 % (42.0-52.0); HEMOGLOBIN. 12.2 g/dL (14.0-18.0); LYMPHOCYTES % 38.8 % (20.0-50.0); MEAN CORPUSCULAR HEMOGLOBIN 31.4 pg (28.0-32.0); MEAN CORPUSCULAR VOLUME 93.1 fL (80.0-94.0); MEAN PLATELET VOLUME 7.7 fl (7.4-10.4); MONOCYTES % 10.6 % (2.0-8.0); NEUTROPHILS % 48.9 % (40.0-76.0); PLATELET 141 x1000/uL (130-400); RED BLOOD CELL COUNT 3.87 mill/uL (4.7-6.1); RED CELL DISTRIBUTION WIDTH 13.5 % (11.6-14.6)
[2022-09-19 11:04] LABS: CHLORIDE 103 mEq/L (98-107)
[2022-09-19 11:30] LABS: HDL CHOLESTEROL 56 mg/dL (40-59); LDL CHOLESTEROL 84 mg/dL (5-100); T4 FREE 0.88 ng/dL (0.76-1.46)
[2022-09-19 12:00] VITALS: BP 137/88
[2022-09-19] MEDS ORDERED: DEXTROSE 50% WATER 50ML SYRINGE IV PRN (12:30)
[2022-09-19] MEDS: INSULIN LISPRO 100 UNITS/ML SUBCUT SCH ×3 (12:45→21:00)
[2022-09-19 16:00] VITALS: BP 140/82
[2022-09-19] MEDS: BLOOD SUGAR DIAGNOSTIC STRIP TEST SCH ×2 (17:10→21:00)
[2022-09-19] MEDS ORDERED: EMPA25TA PO (17:22)
[2022-09-19] MEDS ORDERED: MULT-1241 PO (17:22)
[2022-09-19] MEDS ORDERED: LOSA25TA26 PO (17:22)
[2022-09-19] MEDS ORDERED: ATOR40TA70 PO (17:22)
[2022-09-19] MEDS ORDERED: METF-416 PO (17:22)
[2022-09-19 20:00] VITALS: BP 145/98
[2022-09-19] MEDS: FAMOTIDINE 20MG/2ML VIAL IV SCH (21:00)
[2022-09-19] MEDS: ENOXAPARIN 40MG/0.4ML SYR SUBCUT SCH (21:00)
[2022-09-19 21:32] LABS: VITAMIN B12 SERUM 842 pg/mL (211-911)
[2022-09-19] MEDS: TRAZODONE HCL 50MG TABLET PO SCH (22:30)
[2022-09-20] VITALS: BP 149/99
[2022-09-20] MEDS: KETOROLAC 30MG/ML VIAL IV PRN ×4 (01:16→21:01)
[2022-09-20] MEDS: BACLOFEN 10MG TABLET PO SCH ×3 (07:00→21:01)
[2022-09-20] MEDS: BLOOD SUGAR DIAGNOSTIC STRIP TEST SCH ×4 (07:00→21:14)
[2022-09-20] MEDS: INSULIN LISPRO 100 UNITS/ML SUBCUT SCH ×4 (07:00→21:13)
[2022-09-20 08:00] VITALS: BP 131/88
[2022-09-20 08:22] LABS: BASOPHILS % 0.3 % (0.0-2.0); EOSINOPHILS % 1.7 % (0.0-5.0); HEMATOCRIT. 36.7 % (42.0-52.0); HEMOGLOBIN. 12.2 g/dL (14.0-18.0); LYMPHOCYTES % 31.5 % (20.0-50.0); MEAN CORPUSCULAR HEMOGLOBIN 31.4 pg (28.0-32.0); MEAN PLATELET VOLUME 7.9 fl (7.4-10.4); MONOCYTES % 9.2 % (2.0-8.0); NEUTROPHILS % 57.3 % (40.0-76.0); PLATELET 153 x1000/uL (130-400); RED CELL DISTRIBUTION WIDTH 13.4 % (11.6-14.6)
[2022-09-20 09:10] LABS: CHLORIDE 104 mEq/L (98-107)
[2022-09-20] MEDS: FAMOTIDINE 20MG/2ML VIAL IV SCH ×2 (09:22→21:01)
[2022-09-20] MEDS: LACTATED RINGERS 1,000 ML IV SCH ×2 (09:27→17:45)
[2022-09-20 09:31] LABS: AMYLASE 145 IU/L (25-115); PHOSPHORUS 2.6 mg/dL (2.5-4.9)
[2022-09-20] MEDS ORDERED: ASPI-1406 MT (10:49)
[2022-09-20 12:00] VITALS: BP 119/83
[2022-09-20] MEDS: DOCUSATE SODIUM 100MG CAPSULE PO PRN (14:11)
[2022-09-20 16:00] VITALS: BP 153/91
[2022-09-20 20:00] VITALS: BP 139/99
[2022-09-20] MEDS: TRAZODONE HCL 50MG TABLET PO SCH (21:02)
[2022-09-20] MEDS: ENOXAPARIN 40MG/0.4ML SYR SUBCUT SCH (21:02)
[2022-09-21] VITALS: BP 123/83
[2022-09-21] MEDS: DOCUSATE SODIUM 100MG CAPSULE PO PRN (01:10)
[2022-09-21 04:00] VITALS: BP 132/84
[2022-09-21] MEDS: LACTATED RINGERS 1,000 ML IV SCH (05:16)
[2022-09-21] MEDS: BACLOFEN 10MG TABLET PO SCH (06:46)
[2022-09-21] MEDS: BLOOD SUGAR DIAGNOSTIC STRIP TEST SCH (06:48)
[2022-09-21] MEDS: INSULIN LISPRO 100 UNITS/ML SUBCUT SCH (06:49)
[2022-09-21 07:37] LABS: BASOPHILS % 0.4 % (0.0-2.0); EOSINOPHILS % 2.3 % (0.0-5.0); HEMATOCRIT. 34.2 % (42.0-52.0); HEMOGLOBIN. 11.5 g/dL (14.0-18.0); LYMPHOCYTES % 41.7 % (20.0-50.0); MEAN CORPUSCULAR HEMOGLOBIN 31.3 pg (28.0-32.0); MEAN CORPUSCULAR VOLUME 92.9 fL (80.0-94.0); MEAN PLATELET VOLUME 8.2 fl (7.4-10.4); MONOCYTES % 10.2 % (2.0-8.0); NEUTROPHILS % 45.4 % (40.0-76.0); PLATELET 160 x1000/uL (130-400); RED BLOOD CELL COUNT 3.68 mill/uL (4.7-6.1); RED CELL DISTRIBUTION WIDTH 13.4 % (11.6-14.6)
[2022-09-21] MEDS: FAMOTIDINE 20MG/2ML VIAL IV SCH (08:50)
[2022-09-21 09:04] LABS: CHLORIDE 106 mEq/L (98-107)
== END 2022-09-21 09:45 | disposition home or self-care (01) | DRG 282 ==
LOC: ER 13:44 → MICUSO 21:23 → 7EST 09-19 05:14
PROVIDERS: ADMIT Internal Medicine; ATTEND Internal Medicine
DX: K85.90 Acute pancreatitis without necrosis or infection, unspecified (principal); E83.39 Other disorders of phosphorus metabolism; D64.9 Anemia, unspecified; E11.65 Type 2 diabetes mellitus with hyperglycemia; E83.42 Hypomagnesemia; F10.10 Alcohol abuse, uncomplicated; F17.200 Nicotine dependence, unspecified, uncomplicated; M62.838 Other muscle spasm; G47.00 Insomnia, unspecified; R74.01 Elevation of levels of liver transaminase levels; F32.A Depression, unspecified; Y90.0 Blood alcohol level of less than 20 mg/100 ml; Z88.0 Allergy status to penicillin; Z79.4 Long term (current) use of insulin; Z79.84 Long term (current) use of oral hypoglycemic drugs
CPT/HCPCS: 36415; 74018; 74177; 80048; 80053; 80061; 80305; 80320; 81003; 82010; 82150; 82607; 82746; 82962; 83036; 83735; 83880; 84100; 84439; 84443; 84484; 85025; 92610; 93005; 93306; 93970; 99285; C9113; J1650; J1815; J1885; J2060; J2270; J2405; J3475; J3490; J7060; J7120; G0480

== ENCOUNTER 2022-11-19 13:54 | Emergency (ER) | payer MEDICAID ==
[~2022-11-19] VITALS: Ht 177.8 cm; Wt 79.9 kg
[~2022-11-19 13:54] MED LIST changes: +ASPI-1406 MT; +ATOR40TA70 PO; -BACL-141 MT; -BENZ0.5T43 PO; +EMPA25TA PO; -GLIM4TAB36 MT; +LOSA25TA26 PO; -METF-414 MT; +METF-416 PO; +MULT-1241 PO; -QUET100T MT
[2022-11-19 14:00] VITALS: O2SAT 99
[2022-11-19] MEDS ORDERED: DIPHENHYDRAMINE 50MG/ML VIAL IV ONE (14:15)
[2022-11-19] MEDS ORDERED: KETOROLAC 30MG/ML VIAL IV ONE (14:45)
[2022-11-19] MEDS ORDERED: SODIUM CHLORIDE 0.9% 1,000 ML IV ONE (14:45)
[2022-11-19 14:59] LABS: CHLORIDE 106 mEq/L (98-107)
[2022-11-19 15:02] LABS: BASOPHILS % 0.3 % (0.0-2.0); EOSINOPHILS % 1.4 % (0.0-5.0); HEMATOCRIT. 42.1 % (42.0-52.0); HEMOGLOBIN. 14.2 g/dL (14.0-18.0); LYMPHOCYTES % 21.7 % (20.0-50.0); MEAN CORPUSCULAR VOLUME 92.1 fL (80.0-94.0); MEAN PLATELET VOLUME 8.5 fl (7.4-10.4); MONOCYTES % 5.9 % (2.0-8.0); NEUTROPHILS % 70.7 % (40.0-76.0); PLATELET 190 x1000/uL (130-400); RED BLOOD CELL COUNT 4.57 mill/uL (4.7-6.1); RED CELL DISTRIBUTION WIDTH 14.2 % (11.6-14.6)
[2022-11-19 15:07] LABS: ETHANOL BLOOD < 10 mg/dL (-10)
[2022-11-19] MEDS ORDERED: DEXTROSE 50% WATER 50ML SYRINGE IV ONE (16:00)
[2022-11-19] MEDS ORDERED: INSULIN REGULAR (HUMULIN R) 300UNITS/3ML VIAL IV ONE (16:00)
[2022-11-19] MEDS ORDERED: CALCIUM GLUCONATE 1,000 MG in DEXT 5% WATER 100 ML IV ONE (16:00)
[2022-11-19] MEDS ORDERED: DIAZEPAM 5 MG/ML 2ML CPJ IV ONE (16:00)
[2022-11-19] MEDS ORDERED: CALCIUM GLUCONATE 1GM PREMIX 100 ML IV NR (16:00)
[2022-11-19] MEDS ORDERED: SODIUM BICARBONATE 8.4% 1 MEQ/ML 50ML SYR IV ONE (16:00)
[2022-11-19] MEDS ORDERED: METHOCARBAMOL 750MG TABLET PO SCH (16:15)
[2022-11-19 16:41] VITALS: BP 147/87; PULSE 96; RESP 18; TEMP 97.5
[2022-11-19] MEDS ORDERED: METH-653 MT (18:09)
== END 2022-11-19 18:32 | disposition home or self-care (01) ==
LOC: ER 14:01
DX: M26.609 Unspecified temporomandibular joint disorder, unspecified side (principal); E87.5 Hyperkalemia; Z88.0 Allergy status to penicillin
CPT/HCPCS: 80053; 80320; 85025; 84484; 36415; 71045; 70450; 93005; 96361; 96374; 96375; 99285; J0610; J3360; J1200; J1815; J1885; J3490; J7030; Z7610 ×2; J7060; G0480

== ENCOUNTER 2023-10-15 23:21 | Inpatient (IN) | payer MEDICAID ==
[~2023-10-15] VITALS: Ht 177.8 cm; Wt 70.3 kg
[2023-10-16] MEDS: IOHEXOL-350 100 ML BOTTLE ONE (00:01)
[2023-10-16] MEDS: SODIUM CHLORIDE 0.9% 1,000 ML IV ONE ×2 (00:03→04:24)
[2023-10-16] MEDS: ONDANSETRON HCL 4MG/2ML INJ IV STA ×2 (00:10→04:24)
[2023-10-16 00:14] LABS: BG BASE EXCESS -3.1 mmol/L (-2.0-2.0); BG CARBOXYHEMOGLOBIN 0.2 % (0.5-1.5); BG DEOXYHEMOGLOBIN 3.6 % (0.0-5.0); BG FRACTION INSPIRED OXYGEN 21; BG HCO3 ACT 19.3 mmol/L (22.0-26.0); BG METHEMOGLOBIN 0.1 % (0.0-1.5); BG OXYGEN SATURATION 96.4 % (92.0-98.5); BG OXYHEMOGLOBIN 96.1 % (94.0-97.0); BG PCO2 28.1 mmHg (35.0-45.0); BG PH 7.454 (7.350-7.450); BG PO2 88.5 mmHg (75.0-100.0); BG SAMPLE SITE LEFT RADIAL; BG VENT MODE ROOM AIR
[2023-10-16] MEDS: MORPHINE SULFATE 4 MG/ML INJ (FOR IV/IM USE) IV STA ×2 (00:14→04:24)
[2023-10-16] MEDS: LORAZEPAM 2MG/ML INJ IV ONE (00:15)
[2023-10-16 01:58] LABS: BASOPHILS % 0.7 % (0.0-2.0); EOSINOPHILS % 2.2 % (0.0-5.0); HEMOGLOBIN. 13.8 g/dL (14.0-18.0); LYMPHOCYTES % 41.6 % (20.0-50.0); MEAN CORPUSCULAR HGB CONC 33.6 g/dL (31.0-37.0); MEAN CORPUSCULAR VOLUME 92.2 fL (80.0-94.0); MEAN PLATELET VOLUME 7.8 fl (7.4-10.4); MONOCYTES % 7.3 % (2.0-8.0); NEUTROPHILS % 48.2 % (40.0-76.0); PLATELET 146 x1000/uL (130-400); RED BLOOD CELL COUNT 4.45 mill/uL (4.7-6.1)
[2023-10-16 02:09] LABS: CHLORIDE 102 mEq/L (98-107); POTASSIUM 5.3 mEq/L (3.5-5.1); SODIUM 135 mEq/L (136-145)
[2023-10-16 02:10] LABS: CALCIUM 8.3 mg/dL (8.7-10.4); CARBON DIOXIDE 23 mEq/L (21-32)
[2023-10-16 02:15] LABS: CREATININE 0.7 mg/dL (0.6-1.3); GLUCOSE 263 mg/dL (70-105)
[2023-10-16 02:16] LABS: ETHANOL BLOOD 130 mg/dL (<10)
[2023-10-16 02:17] LABS: CREATINE KINASE 69 IU/L (46-171)
[2023-10-16 02:20] LABS: TROPONIN I HIGH SENSITIVITY < 4 ng/L (3.0-53); UREA NITROGEN BLOOD < 5 mg/dL (9-23)
[2023-10-16 02:28] LABS: LACTIC ACID 4.9 mmol/L (0.4-2.0)
[2023-10-16 02:37] LABS: D-DIMER 0.58 mg/L FEU (<0.50); PROTHROMBIN TIME 11.2 sec (9.6-11.0)
[2023-10-16 04:23] LABS: CLARITY URINE CLEAR (CLEAR); COLOR URINE YELLOW (YELLOW); GLUCOSE URINE 3+ (NEGATIVE); KETONES URINE 1+ (NEGATIVE); LEUKOCYTE ESTERASE URINE NEGATIVE (NEGATIVE); NITRITE URINE NEGATIVE (NEGATIVE); OCCULT BLOOD URINE NEGATIVE (NEGATIVE); PROTEIN URINE TRACE (NEGATIVE); SPECIFIC GRAVITY URINE 1.035 (1.005-1.030); UROBILINOGEN URINE 0.2 E.U./dL (0.2-1.0)
[2023-10-16] MEDS: PANTOPRAZOLE SODIUM 40 MG/VIAL IV STA (04:25)
[2023-10-16 04:31] LABS: *AMPHETAMINES SCREEN URINE NEGATIVE (NEGATIVE); *BARBITURATES SCREEN URINE NEGATIVE (NEGATIVE); *BENZODIAZEPINES SCREEN URINE NEGATIVE (NEGATIVE); *COCAINE SCREEN URINE NEGATIVE (NEGATIVE); CANNABINOID URINE SCREEN NEGATIVE (NEGATIVE); ECSTASY MDMA SCREEN URINE NEGATIVE (NEGATIVE); METHADONE URINE SCREEN NEGATIVE (NEGATIVE); OPIATES URINE SCREEN PRESUMPTIVE POSITIVE (NEGATIVE); PHENCYCLIDINE URINE SCREEN NEGATIVE (NEGATIVE)
[2023-10-16 04:40] LABS: BACTERIA URINE TRACE; MUCUS URINE 2+ /lpf (NONE/TRACE); RBC URINE 0-2 /hpf (0-2); SQUAMOUS EPITHELIAL CELL URINE FEW /lpf (RARE/1+); WBC URINE 0-2 /hpf (0-2)
[2023-10-16 04:56] LABS: ALANINE AMINOTRANSFERASE 60 IU/L (10-49); ALBUMIN 3.4 g/dL (3.2-4.8); ASPARTATE AMINOTRANSFERASE 84 IU/L (<34); BILIRUBIN DIRECT 0.1 mg/dL (<=3.0); BILIRUBIN TOTAL 0.2 mg/dL (0.1-1.0); PROTEIN TOTAL 5.9 g/dL (6.0-8.3)
[2023-10-16 05:11] LABS: TROPONIN I HIGH SENSITIVITY < 4 ng/L (3.0-53)
[2023-10-16] MEDS: KETOROLAC 15MG/ML VIAL IV PRN (11:25)
[2023-10-16 12:00] VITALS: BP 135/90; PULSE 79; RESP 20; TEMP 97.6
[2023-10-16] MEDS ORDERED: ACETAMINOPHEN 325MG TABLET PO PRN ×2 (12:30→13:00)
[2023-10-16] MEDS ORDERED: ONDANSETRON HCL 4MG/2ML INJ IV PRN (12:30)
[2023-10-16] MEDS ORDERED: CLONIDINE 0.1MG TABLET PO PRN (12:30)
[2023-10-16] MEDS ORDERED: MAGNESIUM/ALUMINUM HYDROXIDE/SIMETHICONE 30ML UDC PO PRN (12:45)
[2023-10-16 13:30] VITALS: BP 135/90; PULSE 78; RESP 18; TEMP 97.6
[2023-10-16] MEDS ORDERED: DEXTROSE 50% WATER 50ML SYRINGE IV PRN (14:00)
[2023-10-16] MEDS: VANCOMYCIN 1GM/200ML PMX (BAXTER) IV SCH (14:01)
[2023-10-16] MEDS: MVI, ADULT NO.1 10 ML, FOLIC ACID 1 MG, THIAMINE HCL 100 MG in SODIUM CHLORIDE 0.9% 1,0... IV SCH (14:02)
[2023-10-16] MEDS: LEVOFLOXACIN 750MG PREMIX 150 ML IV SCH (14:03)
[2023-10-16 15:47] LABS: TROPONIN I HIGH SENSITIVITY < 4 ng/L (3.0-53)
[2023-10-16 16:00] VITALS: BP 119/89; PULSE 91; RESP 20; TEMP 97.9
[2023-10-16 16:42] LABS: HEPATITIS B SURFACE ANTIGEN NEGATIVE (Negative)
[2023-10-16] MEDS ORDERED: ENOXAPARIN 40MG/0.4ML SYR SUBCUT SCH (17:00)
[2023-10-16 17:03] LABS: HEPATITIS C AB NON REACTIVE (Neg) (Negative)
[2023-10-16] MEDS: BLOOD SUGAR DIAGNOSTIC STRIP TEST SCH (17:11)
[2023-10-16] MEDS: PANTOPRAZOLE SODIUM 40 MG/VIAL IV SCH (17:20)
[2023-10-16] MEDS: ENOXAPARIN 40MG/0.4ML SYR SUBCUT SCH (17:20)
[2023-10-16] MEDS: INSULIN LISPRO 100 UNITS/ML SUBCUT SCH (17:22)
[2023-10-16] MEDS: VANCOMYCIN 500MG PREMIX 100 ML IV SCH (17:23)
[2023-10-16 20:00] VITALS: BP 128/86; PULSE 75; RESP 18; TEMP 97.4
[2023-10-16] MEDS: LORAZEPAM 2MG/ML INJ IV PRN (21:55)
[2023-10-16] MEDS: BACLOFEN 10MG TABLET PO SCH (21:55)
[2023-10-17] VITALS: BP 111/73; PULSE 70; RESP 20; TEMP 97.5
[2023-10-17 00:43] LABS: TROPONIN I HIGH SENSITIVITY < 4 ng/L (3.0-53)
[2023-10-17 06:35] LABS: BASOPHILS % 0.2 % (0.0-2.0); EOSINOPHILS % 1.7 % (0.0-5.0); HEMATOCRIT. 37.1 % (42.0-52.0); HEMOGLOBIN. 12.4 g/dL (14.0-18.0); LYMPHOCYTES % 31.7 % (20.0-50.0); MEAN CORPUSCULAR HGB CONC 33.5 g/dL (31.0-37.0); MEAN CORPUSCULAR VOLUME 92.6 fL (80.0-94.0); MONOCYTES % 8.5 % (2.0-8.0); NEUTROPHILS % 57.9 % (40.0-76.0); PLATELET 119 x1000/uL (130-400); RED BLOOD CELL COUNT 4.01 mill/uL (4.7-6.1); RED CELL DISTRIBUTION WIDTH 12.7 % (11.6-14.6); WHITE BLOOD COUNT 4.4 x1000/uL (4.5-11.0)
[2023-10-17 07:08] LABS: CHLORIDE 103 mEq/L (98-107); POTASSIUM 3.6 mEq/L (3.5-5.1); SODIUM 138 mEq/L (136-145)
[2023-10-17 07:11] LABS: CALCIUM 8.8 mg/dL (8.7-10.4); CARBON DIOXIDE 28 mEq/L (21-32)
[2023-10-17 07:15] LABS: THYROID STIMULATING HORMONE 1.77 uIU/mL (0.55-4.78)
[2023-10-17 07:16] LABS: CREATININE 0.5 mg/dL (0.6-1.3); GLUCOSE 191 mg/dL (70-105); TRIGLYCERIDE 110 mg/dL (0-150)
[2023-10-17 07:17] LABS: ALANINE AMINOTRANSFERASE 46 IU/L (10-49); LDL CHOLESTEROL 118 mg/dL (5-100)
[2023-10-17 07:18] LABS: ALBUMIN 3.3 g/dL (3.2-4.8); ASPARTATE AMINOTRANSFERASE 52 IU/L (<34); BILIRUBIN TOTAL 0.5 mg/dL (0.1-1.0); CHOLESTEROL 185 mg/dL (<200); HDL CHOLESTEROL 56 mg/dL (>55); PROTEIN TOTAL 5.8 g/dL (6.0-8.3)
[2023-10-17 08:00] VITALS: BP 106/77; PULSE 67; RESP 18; TEMP 97.8
[2023-10-17 08:12] LABS: UREA NITROGEN BLOOD < 5 mg/dL (9-23)
[2023-10-17] MEDS: THIAMINE HCL 100MG TABLET PO SCH (08:59)
[2023-10-17] MEDS: FOLIC ACID 1MG TABLET PO SCH (08:59)
[2023-10-17] MEDS: VANCOMYCIN 1.25GM PMX (XELLIA) 250 ML IV SCH (09:00)
[2023-10-17 12:00] VITALS: BP 160/88; PULSE 60; RESP 18; TEMP 97.7
[2023-10-17 16:00] VITALS: BP 130/92; PULSE 64; RESP 18; TEMP 97.7
[2023-10-17 20:00] VITALS: BP 135/93; PULSE 62; RESP 18; TEMP 97.5
[2023-10-18 00:16] VITALS: BP 130/72; PULSE 68; RESP 18; TEMP 97.8
[2023-10-18 04:00] VITALS: PULSE 56; RESP 19
[2023-10-18 08:00] VITALS: PULSE 58; RESP 20; TEMP 97.9
[2023-10-18 11:36] LABS: BASOPHILS % 0.3 % (0.0-2.0); CHLORIDE 105 mEq/L (98-107); EOSINOPHILS % 3.7 % (0.0-5.0); HEMATOCRIT. 34.2 % (42.0-52.0); HEMOGLOBIN. 11.4 g/dL (14.0-18.0); MEAN CORPUSCULAR HEMOGLOBIN 31.4 pg (28.0-32.0); MEAN CORPUSCULAR HGB CONC 33.3 g/dL (31.0-37.0); MEAN CORPUSCULAR VOLUME 94.3 fL (80.0-94.0); MEAN PLATELET VOLUME 8.9 fl (7.4-10.4); MONOCYTES % 8.3 % (2.0-8.0); NEUTROPHILS % 48.7 % (40.0-76.0); PLATELET 119 x1000/uL (130-400); POTASSIUM 3.3 mEq/L (3.5-5.1); RED BLOOD CELL COUNT 3.62 mill/uL (4.7-6.1); RED CELL DISTRIBUTION WIDTH 12.7 % (11.6-14.6); SODIUM 137 mEq/L (136-145); WHITE BLOOD COUNT 4.2 x1000/uL (4.5-11.0)
[2023-10-18 11:39] LABS: CALCIUM 8.6 mg/dL (8.7-10.4); CARBON DIOXIDE 24 mEq/L (21-32)
[2023-10-18 11:44] LABS: CREATININE 0.6 mg/dL (0.6-1.3); GLUCOSE 266 mg/dL (70-105)
[2023-10-18 11:45] LABS: ALBUMIN 3.2 g/dL (3.2-4.8)
[2023-10-18 11:46] LABS: ALANINE AMINOTRANSFERASE 33 IU/L (10-49); ASPARTATE AMINOTRANSFERASE 47 IU/L (<34); PHOSPHORUS 3.1 mg/dL (2.5-4.9)
[2023-10-18 11:47] LABS: BILIRUBIN TOTAL 0.5 mg/dL (0.1-1.0); PROTEIN TOTAL 5.5 g/dL (6.0-8.3)
[2023-10-18 12:00] VITALS: BP 129/78; PULSE 40; RESP 20; TEMP 97.8
[2023-10-18 12:48] LABS: UREA NITROGEN BLOOD < 5 mg/dL (9-23)
[2023-10-18 16:00] VITALS: BP 133/83; PULSE 46; RESP 20; TEMP 97.4
[2023-10-18 20:00] VITALS: BP 138/89; PULSE 56; RESP 18; TEMP 97.9
[2023-10-18] MEDS: HYDROCODONE/ACETAMINOPHEN 5/325MG TABLET PO PRN (20:50)
[2023-10-18] MEDS: MAGNESIUM 2 G PREMIX 50 ML IV NR (21:44)
[2023-10-18] MEDS: KCL 20MEQ/100ML PREMIX 100 ML IV NR (21:44)
[2023-10-18] MEDS: GUAIFENESIN 200MG/10ML SUGAR FREE UDC PO NR (23:49)
[2023-10-19] VITALS: BP 139/91; PULSE 58; RESP 16; TEMP 97.2
[2023-10-19 04:00] VITALS: PULSE 58; RESP 18
[2023-10-19 06:02] LABS: BASOPHILS % 0.3 % (0.0-2.0); EOSINOPHILS % 3.1 % (0.0-5.0); HEMATOCRIT. 38.2 % (42.0-52.0); HEMOGLOBIN. 12.5 g/dL (14.0-18.0); LYMPHOCYTES % 36.9 % (20.0-50.0); MEAN CORPUSCULAR HEMOGLOBIN 30.8 pg (28.0-32.0); MEAN CORPUSCULAR HGB CONC 32.8 g/dL (31.0-37.0); MEAN CORPUSCULAR VOLUME 93.9 fL (80.0-94.0); MEAN PLATELET VOLUME 8.2 fl (7.4-10.4); MONOCYTES % 7.4 % (2.0-8.0); NEUTROPHILS % 52.3 % (40.0-76.0); PLATELET 115 x1000/uL (130-400); RED BLOOD CELL COUNT 4.06 mill/uL (4.7-6.1); RED CELL DISTRIBUTION WIDTH 12.7 % (11.6-14.6); WHITE BLOOD COUNT 4.7 x1000/uL (4.5-11.0)
[2023-10-19 06:12] LABS: CHLORIDE 104 mEq/L (98-107); POTASSIUM 3.3 mEq/L (3.5-5.1); SODIUM 138 mEq/L (136-145)
[2023-10-19 06:13] LABS: CALCIUM 8.8 mg/dL (8.7-10.4); CARBON DIOXIDE 26 mEq/L (21-32)
[2023-10-19 06:18] LABS: ALANINE AMINOTRANSFERASE 39 IU/L (10-49); CREATININE 0.7 mg/dL (0.6-1.3); GLUCOSE 222 mg/dL (70-105)
[2023-10-19 06:20] LABS: ALBUMIN 3.6 g/dL (3.2-4.8); ASPARTATE AMINOTRANSFERASE 48 IU/L (<34); BILIRUBIN TOTAL 0.5 mg/dL (0.1-1.0); PROTEIN TOTAL 6.2 g/dL (6.0-8.3); UREA NITROGEN BLOOD < 5 mg/dL (9-23)
[2023-10-19 08:00] VITALS: PULSE 71; RESP 18
[2023-10-19] MEDS: INSULIN LISPRO 100 UNITS/ML SUBCUT SCH (09:05)
[2023-10-19] MEDS: POTASSIUM CHLORIDE 20MEQ TABLET SR PO NR (09:06)
[2023-10-19] MEDS: LEVOFLOXACIN 250MG TABLET PO SCH (11:43)
[2023-10-19 12:00] VITALS: PULSE 57; RESP 16
[2023-10-19 16:00] VITALS: BP 134/85; PULSE 58; RESP 18; TEMP 98
[2023-10-19] MEDS ORDERED: NALOXONE HCL 0.4MG/ML VIAL IV PRN (16:00)
[2023-10-19 20:00] VITALS: BP 107/77; PULSE 67; RESP 20; TEMP 98.6
[2023-10-19] MEDS: DEXT 5%/0.9% NACL 1,000 ML IV SCH (21:00)
[2023-10-19] MEDS: INSULIN GLARGINE 100 UNITS/ML SUBCUT SCH (21:42)
[2023-10-20] VITALS: BP 141/89; PULSE 59; RESP 20; TEMP 98
[2023-10-20 03:58] LABS: PROTHROMBIN TIME 11.4 sec (9.6-11.0)
[2023-10-20 04:02] LABS: CHLORIDE 110 mEq/L (98-107); POTASSIUM 3.7 mEq/L (3.5-5.1); SODIUM 142 mEq/L (136-145)
[2023-10-20 04:03] LABS: CALCIUM 8.9 mg/dL (8.7-10.4); CARBON DIOXIDE 25 mEq/L (21-32)
[2023-10-20 04:08] LABS: CREATININE 0.6 mg/dL (0.6-1.3); GLUCOSE 213 mg/dL (70-105)
[2023-10-20 04:10] LABS: PHOSPHORUS 3.9 mg/dL (2.5-4.9)
[2023-10-20 04:36] LABS: UREA NITROGEN BLOOD < 5 mg/dL (9-23)
[2023-10-20 05:22] LABS: BASOPHILS % 0.4 % (0.0-2.0); EOSINOPHILS % 2.7 % (0.0-5.0); HEMATOCRIT. 37.3 % (42.0-52.0); HEMOGLOBIN. 12.5 g/dL (14.0-18.0); LYMPHOCYTES % 37.8 % (20.0-50.0); MEAN CORPUSCULAR HEMOGLOBIN 31.1 pg (28.0-32.0); MEAN CORPUSCULAR HGB CONC 33.5 g/dL (31.0-37.0); MEAN PLATELET VOLUME 8.6 fl (7.4-10.4); MONOCYTES % 9.1 % (2.0-8.0); PLATELET 138 x1000/uL (130-400); RED BLOOD CELL COUNT 4.01 mill/uL (4.7-6.1); RED CELL DISTRIBUTION WIDTH 12.7 % (11.6-14.6); WHITE BLOOD COUNT 4.9 x1000/uL (4.5-11.0)
[2023-10-20 08:00] VITALS: PULSE 58; RESP 18
[2023-10-20 10:30] VITALS: BP 137/86; PULSE 61; RESP 18; TEMP 98.7
[2023-10-20] MEDS ORDERED: ONDANSETRON HCL 4MG/2ML INJ IV PRN (11:00)
[2023-10-20] MEDS ORDERED: HYDROMORPHONE HCL/PF 2MG/ML CPJ IV PRN (11:00)
[2023-10-20] MEDS ORDERED: MEPERIDINE HCL/PF 25MG/ML CPJ IV PRN (11:00)
[2023-10-20] MEDS ORDERED: LABETALOL 5MG/ML 4ML INJ IV PRN (11:00)
[2023-10-20] MEDS ORDERED: FENTANYL CITRATE/PF 50MCG/ML 2ML VIAL ONE (11:12)
[2023-10-20 15:47] VITALS: BP 125/81; PULSE 62; RESP 18; TEMP 97.9
[2023-10-20 20:00] VITALS: BP 107/77; PULSE 74; RESP 18; TEMP 96.4
[2023-10-21] MEDS: IPRATROPIUM/ALBUTEROL 0.5-3(2.5)MG/3ML NEB HHN PRN (00:16)
[2023-10-21 00:18] VITALS: PULSE 61; RESP 18; O2SAT 98
[2023-10-21 04:07] LABS: CARCINOEMBRYONIC AG - SEND OUT 3.8 ng/mL (0.0-4.7)
[2023-10-21 06:25] LABS: BASOPHILS % 0.2 % (0.0-2.0); HEMATOCRIT. 33.9 % (42.0-52.0); HEMOGLOBIN. 11.4 g/dL (14.0-18.0); LYMPHOCYTES % 36.9 % (20.0-50.0); MEAN CORPUSCULAR HEMOGLOBIN 31.3 pg (28.0-32.0); MEAN CORPUSCULAR HGB CONC 33.6 g/dL (31.0-37.0); MEAN CORPUSCULAR VOLUME 93.1 fL (80.0-94.0); MEAN PLATELET VOLUME 8.5 fl (7.4-10.4); MONOCYTES % 9.9 % (2.0-8.0); PLATELET 137 x1000/uL (130-400); RED BLOOD CELL COUNT 3.64 mill/uL (4.7-6.1); RED CELL DISTRIBUTION WIDTH 12.7 % (11.6-14.6); WHITE BLOOD COUNT 5.7 x1000/uL (4.5-11.0)
[2023-10-21 06:43] LABS: CARBON DIOXIDE 25 mEq/L (21-32); CHLORIDE 105 mEq/L (98-107); POTASSIUM 3.9 mEq/L (3.5-5.1); SODIUM 136 mEq/L (136-145)
[2023-10-21 06:44] LABS: CALCIUM 8.7 mg/dL (8.7-10.4)
[2023-10-21 06:49] LABS: CREATININE 0.8 mg/dL (0.6-1.3); GLUCOSE 312 mg/dL (70-105); UREA NITROGEN BLOOD 6 mg/dL (9-23)
[2023-10-21 06:50] LABS: ALANINE AMINOTRANSFERASE 41 IU/L (10-49); ALBUMIN 3.4 g/dL (3.2-4.8); ASPARTATE AMINOTRANSFERASE 46 IU/L (<34)
[2023-10-21 06:51] LABS: BILIRUBIN TOTAL 0.2 mg/dL (0.1-1.0); PHOSPHORUS 4.9 mg/dL (2.5-4.9); PROTEIN TOTAL 5.5 g/dL (6.0-8.3)
[2023-10-21 08:00] VITALS: BP 151/103; PULSE 64; RESP 18; TEMP 97.7
[2023-10-21] MEDS: MAGNESIUM 4 G PREMIX 100 ML IV SCH (09:00)
[2023-10-21] MEDS: GUAIFENESIN 200MG/10ML SUGAR FREE UDC PO PRN (09:45)
[2023-10-21] MEDS: DOCUSATE SODIUM 100MG CAPSULE PO PRN (09:45)
[2023-10-21 12:00] VITALS: BP 126/93; PULSE 71; RESP 18; TEMP 97.6
[2023-10-21] MEDS: BACLOFEN 10MG TABLET PO SCH (13:16)
[2023-10-21] MEDS ORDERED: BACL20TA MT (13:47)
[2023-10-21] MEDS: MAGNESIUM OXIDE 400MG TABLET PO NR (14:35)
[2023-10-21 14:43] VITALS: BP 126/93; PULSE 71; TEMP 97.5; O2SAT 97
[2023-10-21] MEDS ORDERED: MIRTAZAPINE 15MG TABLET PO SCH (21:00)
== END 2023-10-21 18:08 | disposition home or self-care (01) | DRG 282 ==
LOC: ER 23:21 → 5WST 10-16 04:42 → 8WST 10-16 13:06
PROVIDERS: ADMIT Internal Medicine; ATTEND Internal Medicine
PROC: 0DB78ZX Excision of Stomach, Pylorus, Via Natural or Artificial Opening Endoscopic, Diagnostic (ICD-10-PCS; principal; 2023-10-20)
DX: K85.90 Acute pancreatitis without necrosis or infection, unspecified (principal); K83.1 Obstruction of bile duct; S36.118A Other injury of liver, initial encounter; I24.9 Acute ischemic heart disease, unspecified; E11.9 Type 2 diabetes mellitus without complications; F10.10 Alcohol abuse, uncomplicated; K29.70 Gastritis, unspecified, without bleeding; M62.838 Other muscle spasm; E73.9 Lactose intolerance, unspecified; R13.10 Dysphagia, unspecified; N28.1 Cyst of kidney, acquired; M19.90 Unspecified osteoarthritis, unspecified site; K29.80 Duodenitis without bleeding; G47.00 Insomnia, unspecified; G24.9 Dystonia, unspecified; F41.9 Anxiety disorder, unspecified; F17.210 Nicotine dependence, cigarettes, uncomplicated; E87.6 Hypokalemia; E87.5 Hyperkalemia; E78.5 Hyperlipidemia, unspecified; G51.0 Bell's palsy; Z85.07 Personal history of malignant neoplasm of pancreas; Z79.899 Other long term (current) drug therapy; Z79.84 Long term (current) use of oral hypoglycemic drugs; Z79.4 Long term (current) use of insulin; Z88.0 Allergy status to penicillin; Y90.6 Blood alcohol level of 120-199 mg/100 ml; X58.XXXA Exposure to other specified factors, initial encounter; Y93.89 Activity, other specified; Y92.89 Other specified places as the place of occurrence of the external cause; Y99.8 Other external cause status
CPT/HCPCS: 36415; 36600; 70490; 71045; 71275; 74177; 74181; 80048; 80053; 80061; 80076; 80305; 80320; 81003; 82107; 82375; 82378; 82550; 82805; 82962; 83036; 83605; 83735; 83880; 84100; 84439; 84443; 84484; 85025; 85379; 86705; 86850; 86900; 87340; 88305; 88312; 88313; 93005; 93306; 93970; 99291; C9113; J1650; J1815; J1885; J1956; J2060; J2270; J2405; J3010; J3370; J3411; J3475; J3480; J3490; J7030; J7042; Q9967; G0480

== ENCOUNTER 2024-04-20 12:21 | Emergency (ER) | payer MEDICAID ==
[~2024-04-20] VITALS: Ht 172.7 cm; Wt 70.0 kg
[~2024-04-20 12:21] MED LIST changes: +BACL20TA MT; +THIA100T88 PO
[2024-04-20 12:24] VITALS: O2SAT 99
[2024-04-20 15:25] LABS: BASOPHILS % 0.2 % (0.0-2.0); EOSINOPHILS % 0.8 % (0.0-5.0); HEMATOCRIT. 40.1 % (42.0-52.0); HEMOGLOBIN. 12.9 g/dL (14.0-18.0); LYMPHOCYTES % 27.4 % (20.0-50.0); MEAN CORPUSCULAR HEMOGLOBIN 30.3 pg (28.0-32.0); MEAN CORPUSCULAR HGB CONC 32.2 g/dL (31.0-37.0); MEAN CORPUSCULAR VOLUME 93.8 fL (80.0-94.0); MEAN PLATELET VOLUME 7.7 fl (7.4-10.4); MONOCYTES % 6.1 % (2.0-8.0); NEUTROPHILS % 65.5 % (40.0-76.0); PLATELET 189 x1000/uL (130-400); RED BLOOD CELL COUNT 4.28 mill/uL (4.7-6.1); RED CELL DISTRIBUTION WIDTH 13.7 % (11.6-14.6); WHITE BLOOD COUNT 6.1 x1000/uL (4.5-11.0)
[2024-04-20 15:31] LABS: CHLORIDE 106 mEq/L (98-107); POTASSIUM 4.1 mEq/L (3.5-5.1); SODIUM 138 mEq/L (136-145)
[2024-04-20 15:32] LABS: CARBON DIOXIDE 24 mEq/L (21-32)
[2024-04-20 15:33] LABS: CALCIUM 9.3 mg/dL (8.7-10.4)
[2024-04-20 15:37] LABS: CREATININE 0.7 mg/dL (0.6-1.3); GLUCOSE 127 mg/dL (70-105); UREA NITROGEN BLOOD 7 mg/dL (9-23)
[2024-04-20 15:39] LABS: ALANINE AMINOTRANSFERASE 11 IU/L (10-49); ALBUMIN 4.4 g/dL (3.2-4.8); ASPARTATE AMINOTRANSFERASE 18 IU/L (<34)
[2024-04-20 15:40] LABS: BILIRUBIN TOTAL 0.5 mg/dL (0.1-1.0); PROTEIN TOTAL 7.5 g/dL (6.0-8.3)
[2024-04-20] MEDS: CYCLOBENZAPRINE 10MG TABLET PO ONE (16:18)
[2024-04-20] MEDS: KETOROLAC 30MG/ML VIAL IM ONE (16:18)
[2024-04-20] MEDS ORDERED: CYCL5TAB3 MT (16:38)
[2024-04-20] MEDS ORDERED: CLIN-116 MT (16:40)
[2024-04-20] MEDS ORDERED: DIPH25CA83 MT ×2 (16:42→17:46)
[2024-04-20] MEDS ORDERED: P20 MT (16:46)
[2024-04-20] MEDS ORDERED: FAMO20TA8 MT (17:46)
[2024-04-20] MEDS: DIPHENHYDRAMINE 25MG CAPSULE PO ONE (17:54)
[2024-04-20] MEDS: FAMOTIDINE 20MG TABLET PO ONE (17:54)
[2024-04-20] MEDS: PREDNISONE 20MG TABLET PO ONE (17:55)
[2024-04-20 17:56] VITALS: BP 144/84; PULSE 78; RESP 18; TEMP 37.00296; O2SAT 99
== END 2024-04-20 18:19 | disposition home or self-care (01) ==
LOC: ER 12:21
DX: T78.49XA Other allergy, initial encounter (principal); K08.89 Other specified disorders of teeth and supporting structures; E11.9 Type 2 diabetes mellitus without complications; F10.20 Alcohol dependence, uncomplicated; Z79.899 Other long term (current) drug therapy; Z88.0 Allergy status to penicillin; X58.XXXA Exposure to other specified factors, initial encounter; Y90.9 Presence of alcohol in blood, level not specified
CPT/HCPCS: 99284; 71045; 86592; 80053; 85025; 36415; 96372; Q0163; J7512; J1885

== ENCOUNTER 2024-04-21 04:32 | Inpatient (IN) | payer MEDICAID ==
[~2024-04-21] VITALS: Ht 177.8 cm; Wt 73.9 kg
[~2024-04-21 04:32] MED LIST changes: +CLIN-116 MT; +CYCL5TAB3 MT; +DIPH25CA83 MT; +FAMO20TA8 MT; +P20 MT
[2024-04-21 04:36] VITALS: O2SAT 97
[2024-04-21 05:14] LABS: BASOPHILS % 0.5 % (0.0-2.0); EOSINOPHILS % 0.2 % (0.0-5.0); HEMATOCRIT. 37.3 % (42.0-52.0); HEMOGLOBIN. 12.5 g/dL (14.0-18.0); LYMPHOCYTES % 23.6 % (20.0-50.0); MEAN CORPUSCULAR HGB CONC 33.6 g/dL (31.0-37.0); MEAN CORPUSCULAR VOLUME 92.2 fL (80.0-94.0); MEAN PLATELET VOLUME 7.3 fl (7.4-10.4); MONOCYTES % 5.4 % (2.0-8.0); NEUTROPHILS % 70.3 % (40.0-76.0); PLATELET 203 x1000/uL (130-400); RED BLOOD CELL COUNT 4.05 mill/uL (4.7-6.1); RED CELL DISTRIBUTION WIDTH 13.8 % (11.6-14.6); WHITE BLOOD COUNT 5.2 x1000/uL (4.5-11.0)
[2024-04-21 05:25] LABS: CHLORIDE 105 mEq/L (98-107); POTASSIUM 4.3 mEq/L (3.5-5.1); SODIUM 138 mEq/L (136-145)
[2024-04-21 05:26] LABS: CARBON DIOXIDE 21 mEq/L (21-32)
[2024-04-21 05:31] LABS: CREATININE 0.8 mg/dL (0.6-1.3); GLUCOSE 227 mg/dL (70-105); UREA NITROGEN BLOOD 9 mg/dL (9-23)
[2024-04-21 05:32] LABS: ETHANOL BLOOD 63 mg/dL (<10)
[2024-04-21] MEDS: MORPHINE SULFATE 4 MG/ML INJ (FOR IV/IM USE) IV STA (05:33)
[2024-04-21 05:54] LABS: TROPONIN I HIGH SENSITIVITY < 4 ng/L (3.0-53)
[2024-04-21 06:09] LABS: INR 0.9; PARTIAL THROMBOPLASTIN TIME 24.6 sec (23.4-31.0); PROTHROMBIN TIME 10.5 sec (9.6-11.0)
[2024-04-21] MEDS: ONDANSETRON HCL 4MG/2ML INJ IV STA (06:18)
[2024-04-21] MEDS: SODIUM CHLORIDE 0.9% 1,000 ML IV ONE (06:19)
[2024-04-21] MEDS ORDERED: IPRATROPIUM/ALBUTEROL 0.5-3(2.5)MG/3ML NEB HHN PRN (07:45)
[2024-04-21] MEDS ORDERED: ONDANSETRON HCL 4MG/2ML INJ IV PRN (07:45)
[2024-04-21] MEDS ORDERED: CLONIDINE 0.1MG TABLET PO PRN (07:45)
[2024-04-21] MEDS ORDERED: GUAIFENESIN 200MG/10ML SUGAR FREE UDC PO PRN (07:45)
[2024-04-21] MEDS ORDERED: ACETAMINOPHEN 325MG TABLET PO PRN (07:45)
[2024-04-21 08:00] VITALS: BP 120/90; PULSE 90; RESP 16; TEMP 36.72516; O2SAT 98
[2024-04-21] MEDS ORDERED: LORAZEPAM 2MG/ML INJ IV PRN (08:00)
[2024-04-21] MEDS ORDERED: DEXTROSE 50% WATER 50ML SYRINGE IV PRN (09:00)
[2024-04-21] MEDS: KETOROLAC 15MG/ML VIAL IV NR (09:26)
[2024-04-21] MEDS: SODIUM CHLORIDE 0.9% 1,000 ML IV SCH (09:27)
[2024-04-21] MEDS: MULTIVITAMINS,THER W-MINERALS TABLET PO SCH (09:27)
[2024-04-21] MEDS: FOLIC ACID 1MG TABLET PO SCH (09:27)
[2024-04-21 12:00] VITALS: BP 111/78; PULSE 96; RESP 16; TEMP 36.78072; O2SAT 98
[2024-04-21 12:31] LABS: IRON 57 ug/dL (65-175)
[2024-04-21 12:34] LABS: TOTAL IRON BINDING CAPACITY 384 ug/dl (250-425)
[2024-04-21 12:37] LABS: FERRITIN 119 ng/mL (22-322); VITAMIN B12 SERUM 400 pg/mL (211-911)
[2024-04-21] MEDS: ENOXAPARIN 40MG/0.4ML SYR SUBCUT SCH (14:13)
[2024-04-21] MEDS: BLOOD SUGAR DIAGNOSTIC STRIP TEST SCH (14:13)
[2024-04-21] MEDS: INSULIN LISPRO 100 UNITS/ML SUBCUT SCH (14:14)
[2024-04-21] MEDS: BACLOFEN 10MG TABLET PO SCH (14:15)
[2024-04-21] MEDS: IPRATROPIUM/ALBUTEROL 0.5-3(2.5)MG/3ML NEB HHN SCH (14:15)
[2024-04-21 16:00] VITALS: BP 118/82; PULSE 86; RESP 16; TEMP 36.89184; O2SAT 98
[2024-04-21] MEDS: ACETAMINOPHEN 325MG TABLET PO PRN (16:49)
[2024-04-21 17:00] VITALS: BP 128/88; PULSE 61; RESP 18; TEMP 36.8072
[2024-04-21] MEDS ORDERED: NALOXONE HCL 0.4MG/ML VIAL IV PRN (20:30)
[2024-04-21] MEDS: HYDROCODONE/ACETAMINOPHEN 5/325MG TABLET PO PRN (20:38)
[2024-04-21 23:51] VITALS: BP 132/88; PULSE 55; RESP 18; TEMP 36.114; O2SAT 96
[2024-04-22 04:17] VITALS: BP 127/86; PULSE 58; RESP 18; TEMP 36.16956; O2SAT 98
[2024-04-22 04:19] LABS: CLARITY URINE CLOUDY (CLEAR); COLOR URINE DARK YELLOW (YELLOW); GLUCOSE URINE 1+ (NEGATIVE); KETONES URINE TRACE (NEGATIVE); LEUKOCYTE ESTERASE URINE NEGATIVE (NEGATIVE); NITRITE URINE NEGATIVE (NEGATIVE); OCCULT BLOOD URINE 1+ (NEGATIVE); PROTEIN URINE TRACE (NEGATIVE); SPECIFIC GRAVITY URINE 1.032 (1.005-1.030); UROBILINOGEN URINE 0.2 E.U./dL (0.2-1.0)
[2024-04-22 04:33] LABS: *AMPHETAMINES SCREEN URINE NEGATIVE (NEGATIVE)
[2024-04-22 04:34] LABS: *BARBITURATES SCREEN URINE NEGATIVE (NEGATIVE); *BENZODIAZEPINES SCREEN URINE NEGATIVE (NEGATIVE); *COCAINE SCREEN URINE NEGATIVE (NEGATIVE); CANNABINOID URINE SCREEN NEGATIVE (NEGATIVE); ECSTASY MDMA SCREEN URINE NEGATIVE (NEGATIVE); METHADONE URINE SCREEN NEGATIVE (NEGATIVE); OPIATES URINE SCREEN PRESUMPTIVE POSITIVE (NEGATIVE); PHENCYCLIDINE URINE SCREEN NEGATIVE (NEGATIVE)
[2024-04-22 05:38] LABS: SQUAMOUS EPITHELIAL CELL URINE RARE /lpf (RARE/1+)
[2024-04-22 05:39] LABS: WBC URINE 0-2 /hpf (0-2)
[2024-04-22 05:40] LABS: BACTERIA URINE TRACE
[2024-04-22 05:41] LABS: AMORPHOUS SEDIMENT URINE 1+ /lpf; CALCIUM OXALATE CRYSTALS URINE 1+ /lpf
[2024-04-22 06:45] LABS: CHLORIDE 106 mEq/L (98-107); POTASSIUM 3.8 mEq/L (3.5-5.1); SODIUM 139 mEq/L (136-145)
[2024-04-22 06:46] LABS: CALCIUM 8.6 mg/dL (8.7-10.4); CARBON DIOXIDE 24 mEq/L (21-32)
[2024-04-22 06:51] LABS: GLUCOSE 122 mg/dL (70-105); TRIGLYCERIDE 113 mg/dL (0-150); UREA NITROGEN BLOOD 8 mg/dL (9-23)
[2024-04-22 06:52] LABS: LDL CHOLESTEROL 91 mg/dL (5-100)
[2024-04-22 06:53] LABS: CHOLESTEROL 164 mg/dL (<200); HDL CHOLESTEROL 47 mg/dL (>55)
[2024-04-22 07:08] LABS: BASOPHILS % 0.2 % (0.0-2.0); EOSINOPHILS % 2.2 % (0.0-5.0); HEMATOCRIT. 33.1 % (42.0-52.0); HEMOGLOBIN. 11.1 g/dL (14.0-18.0); LYMPHOCYTES % 42.2 % (20.0-50.0); MEAN CORPUSCULAR HGB CONC 33.3 g/dL (31.0-37.0); MEAN PLATELET VOLUME 8.1 fl (7.4-10.4); MONOCYTES % 7.2 % (2.0-8.0); NEUTROPHILS % 48.2 % (40.0-76.0); PLATELET 146 x1000/uL (130-400); RED BLOOD CELL COUNT 3.56 mill/uL (4.7-6.1); RED CELL DISTRIBUTION WIDTH 13.9 % (11.6-14.6); WHITE BLOOD COUNT 5.6 x1000/uL (4.5-11.0)
[2024-04-22 07:24] LABS: CREATININE 0.5 mg/dL (0.6-1.3)
[2024-04-22 08:00] VITALS: BP 112/80; PULSE 62; RESP 16; TEMP 36.78072; O2SAT 99
[2024-04-22] MEDS: PANTOPRAZOLE 40MG DR TABLET PO SCH (08:18)
[2024-04-22] MEDS: DOCUSATE SODIUM 100MG CAPSULE PO PRN (11:07)
[2024-04-22] MEDS: METHOCARBAMOL 750MG TABLET PO PRN (11:08)
[2024-04-22 12:00] VITALS: BP 125/78; PULSE 60; RESP 17; TEMP 36.78072; O2SAT 99
[2024-04-22 16:00] VITALS: BP 120/76; PULSE 70; RESP 15; TEMP 36.78072; O2SAT 99
[2024-04-22] MEDS: METHYLPREDNISOLONE SOD SUCC 125MG/2ML (ACT-O-VIAL) IV NR (17:58)
[2024-04-22] MEDS: FAMOTIDINE 20MG/2ML VIAL IV NR (17:58)
[2024-04-23] VITALS: BP 118/70; PULSE 71; RESP 16; TEMP 36.44736; O2SAT 99
[2024-04-23 04:00] VITALS: BP 114/76; PULSE 64; RESP 16; TEMP 36.22512; O2SAT 99
[2024-04-23 06:32] LABS: CHLORIDE 104 mEq/L (98-107); POTASSIUM 4.1 mEq/L (3.5-5.1); SODIUM 136 mEq/L (136-145)
[2024-04-23 06:33] LABS: CARBON DIOXIDE 25 mEq/L (21-32)
[2024-04-23 06:38] LABS: CREATININE 0.7 mg/dL (0.6-1.3); UREA NITROGEN BLOOD 9 mg/dL (9-23)
[2024-04-23 06:40] LABS: CREATINE KINASE 230 IU/L (46-171)
[2024-04-23 06:43] LABS: GLUCOSE 278 mg/dL (70-105)
[2024-04-23 08:00] VITALS: BP 141/87; PULSE 52; RESP 17; TEMP 36.9474; TEMP 36.94740; O2SAT 100
[2024-04-23] MEDS: THIAMINE HCL 100MG TABLET PO SCH (08:47)
[2024-04-23 09:06] LABS: FOLATE HEMATOCRIT 36.4 % (37.5-51.0)
[2024-04-23] MEDS ORDERED: KETOROLAC 15MG/ML VIAL IV PRN (10:15)
[2024-04-23] MEDS ORDERED: MAGNESIUM 2 G PREMIX 50 ML IV NR (11:00)
[2024-04-23] MEDS ORDERED: ATORVASTATIN CALCIUM 40MG TABLET PO SCH (21:00)
[2024-04-24] MEDS ORDERED: FAMOTIDINE 20MG TABLET PO SCH (09:00)
[2024-04-26 13:10] LABS: FOLATE RBC 846 ng/mL (>498)
== END 2024-04-23 10:45 | disposition left against medical advice (07) | DRG 48 ==
LOC: ER 04:32 → 5WST 06:29 → EDBEDREQ 06:46 → EDBEDREQTM 06:46 → 7WST 16:42
PROVIDERS: ADMIT Internal Medicine; ATTEND Internal Medicine
DX: G90.89 Other disorders of autonomic nervous system (principal); G45.9 Transient cerebral ischemic attack, unspecified; E11.9 Type 2 diabetes mellitus without complications; Y90.3 Blood alcohol level of 60-79 mg/100 ml; S02.2XXA Fracture of nasal bones, initial encounter for closed fracture; S01.81XA Laceration without foreign body of other part of head, initial encounter; Z53.29 Procedure and treatment not carried out because of patient's decision for other reasons; F10.129 Alcohol abuse with intoxication, unspecified; M13.88 Other specified arthritis, other site; W18.39XA Other fall on same level, initial encounter; F17.200 Nicotine dependence, unspecified, uncomplicated; Z76.5 Malingerer [conscious simulation]; Z79.84 Long term (current) use of oral hypoglycemic drugs; Z86.718 Personal history of other venous thrombosis and embolism; Z88.0 Allergy status to penicillin; Z91.148 Patient's other noncompliance with medication regimen for other reason; Y93.89 Activity, other specified; Y92.89 Other specified places as the place of occurrence of the external cause; Y99.8 Other external cause status; Z87.19 Personal history of other diseases of the digestive system
CPT/HCPCS: 36415; 70486; 71045; 80048; 80061; 80305; 80320; 81003; 82550; 82607; 82728; 82747; 82962; 83036; 83540; 83550; 83735; 83880; 84484; 85014; 85025; 93005; 93970; 97162; 97166; 99285; J1650; J1815; J1885; J2270; J2405; J2919; J3475; J3490; J7030; G0480